=== PATIENT | female | born 1970 | race Caucasian/White ===

== ENCOUNTER 2016-08-05 09:06 | Emergency (ER) | payer SELFPAY ==
[2016-08-05 09:22] VITALS: BP 102/72
[2016-08-05] MEDS ORDERED: Ondansetron 4 MG/2 ML SDV IVPUSH ONE (09:29)
[2016-08-05] MEDS ORDERED: Sodium Chloride 0.9% 1,000 ML IV ONE (09:29)
[2016-08-05] MEDS ORDERED: Pantoprazole 40 MG Vial IVPUSH ONE (09:29)
[2016-08-05] MEDS ORDERED: Codeine/guaiFENesin 100-10 MG/5 ML Syrup 5 ML Cup PO ONE (09:32)
--- NOTE | 2016-08-05 09:42 | EDM.PDOC ---
ED HISTORY OF PRESENT ILLNESS - General Chief Complaint: Respiratory Problem Stated Complaint: VOMITING Time Seen by Provider: 08/05/16 09:11 Source: Reports: Patient History Limitations: Reports: Other (coughing, N/V) - History of Present Illness INITIAL COMMENTS - FREE TEXT/NARRATIVE: 46 y.o.w.f with a h/o COPD, cachexia, smoker, came to the ed due to nonprod. cough, fever nausea, vomiting and gen. bodyache. Pt works for [employer]. Temp on arrival was 98.6. Pt had poor po intake in the past few days. 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 - Related Data Allergies/ADRs: Allergies Allergy/AdvReac Type Severity Reaction Status Date / Time doxycycline Allergy Severe Vomiting Verified 08/05/16 09:27 meperidine [From Demerol] Allergy Severe Vomiting Verified 08/05/16 09:27 Penicillins Allergy Severe Airway Verified 08/05/16 09:27 Tightness Home Meds: Home Meds Albuterol [IJD: Albuterol HFA] 1 puff .XX Q4HR PRN #8 gm 08/05/16 [Rx] Codeine/guaiFENesin [Robitussin AC] 5 ml PO BID PRN #100 mm 08/05/16 [Rx] Prednisone [IMW: predniSONE] 20 mg PO WITHBREAKFAST #5 tab 08/05/16 [Rx] Past Medical History - Past Health History Medical/Surgical History: Denies Medical/Surgical History HEENT History: Reports: Impaired vision Gastrointestinal History: Reports: Other (see below) Other Gastrointestinal History: Pt states she had a bacterial infection in stomach in past. Musculoskeletal History: Reports: Other (see below) Other Musculoskeletal History: scoliosis - Infectious Disease History Infectious Disease History: Reports: C-difficile, Chicken pox, Measles, Mumps, Shingles - Past Surgical History GI Surgical History: Reports: Appendectomy Female Surgical History: Reports: section, Tubal ligation Social & Family History - Family History Family Medical History: Noncontributory - Tobacco Use Smoking Status *Q: Current Every Day Smoker Years of Tobacco use: 25 Packs/Tins Daily: 1 Used Tobacco, but Quit: No Second Hand Smoke Exposure: Yes - Recreational Drug Use Recreational Drug Use: No ED ROS GENERAL - Review of Systems Review Of Systems: See Below Constitutional: Reports: fever, chills, weakness, night sweats, decreased appetite, weight loss HEENT: Reports: No symptoms Respiratory: Reports: shortness of breath Cardiovascular: Reports: No symptoms Endocrine: Reports: no symptoms GI/Abdominal: Reports: No symptoms : Reports: no symptoms Musculoskeletal: Reports: other (bodyache) Skin: Reports: no symptoms Neurological: Reports: no symptoms Psychiatric: Reports: No symptoms Hematologic/Lymphatic: Reports: no symptoms Immunologic: Reports: no symptoms ED EXAM, GENERAL - Physical Exam Exam: See Below Exam Limited By: No limitations General Appearance: alert, cachetic Ears: normal external exam, normal canal, hearing grossly normal, normal TMs Ear Exam: bilateral ear: auricle normal, canal normal, TM normal Nose: normal inspection, normal mucosa, no blood Throat/Mouth: Normal lips, Normal gums, Normal oropharynx, Normal voice, No airway compromise, Other (dry mucosal membrane) Head: atraumatic, normocephalic Neck: normal inspection, supple, non-tender, full range of motion Respiratory/Chest: decreased breath sounds, rhonchi, wheezing, prolonged expiration Cardiovascular: normal peripheral pulses, regular rate, rhythm, no edema, no gallop, no JVD, no murmur, no rub GI/Abdominal: tender (epigastric) (Female) Exam: Deferred Rectal (Female) Exam: Deferred Back Exam: normal inspection, full range of motion, NT Extremities: normal inspection, normal range of motion, non-tender, normal capillary refill, no pedal edema Neurological: alert, oriented, CN II-XII intact, normal cognition, normal gait, normal reflexes, no motor/sensory deficits Psychiatric: normal affect, normal mood Skin Exam: Warm, Dry, Intact, Normal color, No rash Lymphatic: no adenopathy Course - Vital Signs Text/Narrative:: 46 y.o.w.f with a h/o COPD, cachexia, smoker, came to the ed due to nonprod. cough, fever nausea, vomiting and gen. bodyache. Pt works for [employer]. Temp on arrival was 98.6. Pt had poor po intake in the past few days. PE: Cachectic w f with non prod. cough, rhonchi, dehydrated. Labs: MCV elevated, potassium 3.3 CXR: COPD Impression: CIOD exacerbation, Viral syndrom, Dehydration, Hypokalemia Tx: Potassium, Solumedrol, Duoneb, Codeine, NS Reexam: Improved Plan: D/C with instructions Last Recorded V/S: Last Vital Signs Temp 36.4 C 08/05/16 09:10 Pulse 76 08/05/16 10:15 Resp 18 08/05/16 09:10 BP 102/72 08/05/16 09:10 Pulse Ox 97 08/05/16 10:15 - Orders/Labs/Meds Labs: Laboratory Tests 08/05/16 08/05/16 Range/Units 09:35 09:35 WBC 8.2 (4.5-12.0) X10-3/uL RBC 4.25 (3.23-5.20) x10(6)uL Hgb 15.1 (11.5-15.5) g/dL Hct 44.8 (30.0-51.3) % MCV 105.3 H (80-96) fL MCH 35.4 H (27.7-33.6) pg MCHC 33.6 (32.2-35.4) g/dL RDW 13.9 (11.5-15.5) % Plt Count 160 (125-369) X10(3)uL MPV 10.2 (7.4-10.4) fL Neut % (Auto) 53.3 (46-82) % Lymph % (Auto) 40.4 H (13-37) % Chaves % (Auto) 4.7 (4-12) % Eos % (Auto) 1 (1.0-5.0) % Baso % (Auto) 1 (0-2) % Neut # 4.4 (1.6-8.3) # Lymph # 3.3 (0.6-5.0) # Chaves # 0.4 (0.0-1.3) # Eos # 0.0 (0.0-0.8) # Baso # 0.1 (0.0-0.2) # Sodium 139 (135-145) mmol/L Potassium 3.3 L (3.5-5.3) mmol/L Chloride 103 (100-110) mmol/L Carbon Dioxide 24 (23-29) mmol/L BUN 9 (5-20) mg/dL Creatinine 0.5 L (0.6-1.3) mg/dL Est Cr Clr Drug Dosing 100.60 mL/min Estimated GFR (MDRD) > 60 (>60) BUN/Creatinine Ratio 18.0 (9-20) Glucose 123 H (80-116) mg/dL Calcium 8.6 (8.6-10.2) mg/dL Total Bilirubin 0.3 (0.1-1.3) mg/dL Direct Bilirubin 0.1 (0.1-0.2) mg/dL AST 25 (5-27) IU/L ALT 14 (14-26) IU/L Alkaline Phosphatase 61 (56-112) IU/L Total Protein 6.6 (6.0-8.0) g/dL Albumin 3.9 (3.5-5.2) g/dL Amylase 57 (28-100) U/L Meds: Medications Discontinued Medications Generic Name Dose Route Start Last Admin Trade Name Freq PRN Reason Stop Dose Admin Albuterol/Ipratropium 3 ml 08/05/16 09:49 08/05/16 10:16 Duoneb 3.0-0.5 Mg/3 Ml NEB 08/05/16 09:50 3 ml ONETIME ONE Administration Guaifenesin/Codeine Phosphate 5 ml 08/05/16 09:32 08/05/16 09:50 Robitussin Ac PO 08/05/16 09:33 5 ml ONETIME ONE Administration Sodium Chloride 1,000 mls @ 999 mls/hr 08/05/16 09:29 08/05/16 09:58 Normal Saline IV 08/05/16 10:29 999 mls/hr .BOLUS ONE Administration Methylprednisolone Sodium Succinate 125 mg 08/05/16 09:50 08/05/16 10:54 Solu-Medrol IVPUSH 08/05/16 09:51 125 mg ONETIME ONE Administration Ondansetron HCl 8 mg 08/05/16 09:29 08/05/16 10:04 Zofran IVPUSH 08/05/16 09:30 8 mg ONETIME ONE Administration Pantoprazole Sodium 40 mg 08/05/16 09:29 08/05/16 10:00 Protonix Iv IVPUSH 08/05/16 09:30 40 mg ONETIME ONE Administration Potassium Chloride 40 meq 08/05/16 09:57 08/05/16 10:54 Klor-Con M20 PO 08/05/16 09:58 40 meq ONETIME ONE Administration Departure - Departure Time of Disposition: 11:06 Disposition: Home, Self-Care 01 Condition: good Clinical Impression: Viral syndrome, Dehydration, Cachexia, Hypokalemia COPD (chronic obstructive pulmonary disease) with emphysema Qualifiers: Emphysema type: panlobular Qualified Code(s): J43.1 - Panlobular emphysema Prescriptions: Albuterol [IJD: Albuterol HFA] 1 puff .XX Q4HR PRN #8 gm PRN Reason: cough, SOB Codeine/guaiFENesin [Robitussin AC] 5 ml PO BID PRN #100 mm PRN Reason: for severe cough only Prednisone [IMW: predniSONE] 20 mg PO WITHBREAKFAST #5 tab Forms: ED Department Discharge, Return to Work/School Form
[2016-08-05] MEDS ORDERED: Albuterol/Ipratropium 3.0-0.5 MG/3 ML Neb Soln NEB ONE (09:49)
[2016-08-05] MEDS ORDERED: methylPREDNISolone Sodium Succinate 125 MG/2 ML SDV IVPUSH ONE (09:50)
[2016-08-05] MEDS ORDERED: Potassium Chloride 20 MEQ Tab.ER PO ONE (09:57)
--- NOTE | 2016-08-05 10:31 | CR ---
INDICATION: Cough. CHEST: PA and lateral views of the chest 08/05/2016, compared with 03/15/2016, revealed mild hyperaeration, increased AP diameter, and somewhat flattened diaphragm leaves, suggesting COPD. Nipple shadow is noted at the right lung base faintly. A definite active infiltrate or effusion was not identified. Mild dextroconvex scoliosis is noted at the thoracolumbar spine. The heart and mediastinum were unremarkable, except for question of some minimal calcification at the arch of the aorta. IMPRESSION: 1. No acute process. 2. Probable COPD. 3. Question minimal ASD aorta. 4. Mild scoliosis. MTDD
== END 2016-08-05 11:20 | disposition home or self-care (01) ==
LOC: FB.ED 09:06
DX: B34.9 Viral infection, unspecified (principal); E86.0 Dehydration; R64 Cachexia; E87.6 Hypokalemia; J43.1 Panlobular emphysema; F17.210 Nicotine dependence, cigarettes, uncomplicated; Z90.49 Acquired absence of other specified parts of digestive tract; Z98.51 Tubal ligation status; Z98.890 Other specified postprocedural states; Z88.0 Allergy status to penicillin; Z88.1 Allergy status to other antibiotic agents
CPT/HCPCS: 36415; 71020; 80048; 80076; 82150; 85025; 94664; 96361; 96374; 96375; 99283; A9270; C9113; J2405; J2930; J7040; J7620; 99284

== ENCOUNTER 2016-11-23 20:24 | Emergency (ER) | payer SELFPAY ==
[2016-11-23] MEDS ORDERED: Ketorolac 60 MG/2 ML SDV IM ONE (20:37)
[2016-11-23 21:15] VITALS: BP 111/83
--- NOTE | 2016-11-23 21:15 | EDM.PDOC ---
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 Right Middle Arm Pain Score (Numeric/FACES): 8 - Related Data Allergies Allergy/AdvReac Type Severity Reaction Status Date / Time doxycycline Allergy Severe Vomiting Verified 11/23/16 21:05 meperidine [From Demerol] Allergy Severe Vomiting Verified 11/23/16 21:05 Penicillins Allergy Severe Airway Verified 11/23/16 21:05 Tightness Home Meds: Home Meds NK [No Known Home Meds] 11/23/16 [History] Past Medical History - Past Health History Medical/Surgical History: Denies Medical/Surgical History HEENT History: Reports: Impaired Vision Cardiovascular History: Reports: Other (See Below) Other Cardiovascular History: Costeochondritis, low BP Respiratory History: Reports: Asthma, COPD, Other (See Below) Other Respiratory History: Emphysema, Pleurisy Gastrointestinal History: Reports: Other (See Below) Other Gastrointestinal History: Pt states she had a bacterial infection in stomach in past. 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 (See Below) Other OB/BYN History: tubal ligation Musculoskeletal History: Reports: Other (See Below) Other Musculoskeletal History: hand surgery - Infectious Disease History Infectious Disease History: Reports: C-Difficile, Chicken Pox, Measles, Mumps, Shingles - Past Surgical History Female Surgical History: Reports: Section, Tubal Ligation Social & Family History - Family History Family Medical History: Noncontributory - Tobacco Use Smoking Status *Q: Current Every Day Smoker Years of Tobacco use: 35 Packs/Tins Daily: 1.5 Used Tobacco, but Quit: No Second Hand Smoke Exposure: Yes - Caffeine Use Caffeine Use: Reports: Tea - Recreational Drug Use Recreational Drug Use: No Review of Systems - Review of Systems Review Of Systems: See Below Constitutional: Reports: No Symptoms Eyes: Reports: No Symptoms Ears: Reports: No Symptoms Nose: Reports: No Symptoms Mouth/Throat: Reports: No Symptoms Respiratory: Reports: No Symptoms Cardiovascular: Reports: No Symptoms GI/Abdominal: Reports: No Symptoms Genitourinary: Reports: No Symptoms Musculoskeletal: Reports: Other (R elbow pain) Skin: Reports: No Symptoms Neurological: Reports: No Symptoms Psychiatric: Reports: No Symptoms ED EXAM, GENERAL - Physical Exam Exam: See Below Exam Limited By: No Limitations General Appearance: Alert, WD/WN, Mild Distress Respiratory/Chest: No Respiratory Distress Cardiovascular: Regular Rate, Rhythm Extremities: Other (holding RUE gingerly, flexed 90 degrees, good ROM, 1+ tender at medial epicondyle, no swell, no ecchymosis, NT at joint line and radial head, XR neg) Course - Vital Signs Last Recorded V/S: Last Vital Signs Temp 36.6 C 11/23/16 20:25 Pulse 86 11/23/16 20:25 Resp 20 11/23/16 20:25 BP 138/92 H 11/23/16 20:25 Pulse Ox - Orders/Labs/Meds Orders: Active Orders 24 hr Category Date Time Status Elbow Min 3V Rt [CR] Stat Exams 11/23/16 20:37 Taken Meds: Medications Discontinued Medications Generic Name Dose Route Start Last Admin Trade Name Freq PRN Reason Stop Dose Admin Ketorolac Tromethamine 60 mg 11/23/16 20:37 11/23/16 20:47 Toradol IM 11/23/16 20:38 60 mg ONETIME ONE Administration Departure - Departure Time of Disposition: 21:12 Disposition: Home, Self-Care 01 Condition: Good Clinical Impression: Contusion of right elbow, Bone bruise - Discharge Information Instructions: Elbow Contusion Forms: ED Department Discharge Additional Instructions: Use Eric wrap for the next 3-5 days. Use ice for 15 minutes 4 times a day for 2 days. For pain and inflammation, take ibuprofen 200 mg 3 tabs and acetaminophen 325 mg 2 tabs 4 times a day for 3-5 days. No work tomorrow. See your doctor in 2 days if you are not at least 90% better. See your doctor in 1 week if you are not 100% better. Call your Physician or Return to Emergency Department if: * Your condition worsens in any way. * You develop fever greater than 100.4. * You have vomitting that does not stop with medications. * You have pain that is not controlled with medications. - My Orders Last 24 Hours: My Active Orders 11/23/16 20:37 Elbow Min 3V Rt [CR] Stat - Assessment/Plan Last 24 Hours: My Active Orders 11/23/16 20:37 Elbow Min 3V Rt [CR] Stat
--- NOTE | 2016-11-25 13:55 | CR ---
INDICATION: Right elbow pain. RIGHT ELBOW: FINDINGS: I do not have any comparison studies. I do not see a fracture or dislocation or joint effusion. Exam is negative. As appropriate, I recommend either follow-up radiographs or if necessary, MRI for further evaluation. CHRISTINE
== END 2016-11-23 21:23 | disposition home or self-care (01) ==
LOC: FB.ED 20:24
DX: S50.01XA Contusion of right elbow, initial encounter (principal); J45.909 Unspecified asthma, uncomplicated; H54.7 Unspecified visual loss; F17.210 Nicotine dependence, cigarettes, uncomplicated; X50.9XXA Other and unspecified overexertion or strenuous movements or postures, initial encounter; Y93.52 Activity, horseback riding; Z88.0 Allergy status to penicillin; Z88.1 Allergy status to other antibiotic agents; Z88.8 Allergy status to other drugs, medicaments and biological substances
CPT/HCPCS: 73080; 96372; 99283; J1885

== ENCOUNTER 2017-02-13 11:16 | Emergency (ER) | payer SELFPAY ==
[2017-02-13 12:10] VITALS: BP 121/81
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
== END 2017-02-13 12:05 | disposition home or self-care (01) ==
LOC: FB.ED 11:16
DX: M50.222 Other cervical disc displacement at C5-C6 level (principal); G31.89 Other specified degenerative diseases of nervous system; Z98.51 Tubal ligation status; J44.9 Chronic obstructive pulmonary disease, unspecified; F10.10 Alcohol abuse, uncomplicated; Z90.49 Acquired absence of other specified parts of digestive tract; Z88.0 Allergy status to penicillin; Z88.1 Allergy status to other antibiotic agents; Z88.6 Allergy status to analgesic agent
CPT/HCPCS: 99283

== ENCOUNTER 2017-03-27 17:34 | Emergency (ER) | payer SELFPAY ==
[2017-03-27] MEDS ORDERED: Lidocaine 1% 20 ML MDV INJECT ONE (17:35)
[2017-03-27 19:02] VITALS: BP 132/90
--- NOTE | 2017-03-27 19:05 | EDM.PDOC ---
ED HPI GENERAL MEDICAL PROBLEM - General Chief Complaint: Laceration Stated Complaint: LACERATION TO LEFT POINTER FINGER Time Seen by Provider: 03/27/17 17:50 Source of Information: Reports: Patient History Limitations: Reports: No Limitations - History of Present Illness INITIAL COMMENTS - FREE TEXT/NARRATIVE: Patient is a 46 year old woman who cut the lateral side of her left index finger with a paring knife in her kitchen cutting onions. She has some numbness in the finger that radiates up and down the finger. She felt it hit the bone. No loss of function and no other complaints. Her tetanus was given 3 years ago. 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) Left Hand Pain Score (Numeric/FACES): 5 - Related Data Allergies Allergy/AdvReac Type Severity Reaction Status Date / Time doxycycline Allergy Severe Vomiting Verified 03/27/17 17:44 meperidine [From Demerol] Allergy Severe Vomiting Verified 03/27/17 17:44 Penicillins Allergy Severe Airway Verified 03/27/17 17:44 Tightness Home Meds: Home Meds NK [No Known Home Meds] 03/27/17 [History] Past Medical History - Past Health History Medical/Surgical History: Denies Medical/Surgical History HEENT History: Reports: Impaired Vision, Other (See Below) Other HEENT History: wears glasses Cardiovascular History: Reports: Other (See Below) Other Cardiovascular History: Costeochondritis, low BP Respiratory History: Reports: Asthma, COPD, Other (See Below) Other Respiratory History: Emphysema, Pleurisy Gastrointestinal History: Reports: Other (See Below) Other Gastrointestinal History: Pt states she had a bacterial infection in stomach in past. 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: , Other (See Below) Other OB/BYN History: tubal ligation Musculoskeletal History: Reports: Other (See Below) Other Musculoskeletal History: hand surgery - Infectious Disease History Infectious Disease History: Reports: C-Difficile, Chicken Pox, Measles, Mumps, Shingles - Past Surgical History Female Surgical History: Reports: Section, Tubal Ligation Social & Family History - Family History Family Medical History: Noncontributory Oncologic: Reports: Bone, Breast, Colon, Pancreatic - Tobacco Use Smoking Status *Q: Current Every Day Smoker Years of Tobacco use: 35 Packs/Tins Daily: 1 Used Tobacco, but Quit: No Second Hand Smoke Exposure: Yes - Caffeine Use Caffeine Use: Reports: None - Alcohol Use Days Per Week of Alcohol Use: 2 Number of Drinks Per Day: 4 Total Drinks Per Week: 8 - Recreational Drug Use Recreational Drug Use: No ED ROS GENERAL - Review of Systems Review Of Systems: ROS reveals no pertinent complaints other than HPI. ED EXAM, SKIN/RASH Exam: See Below Exam Limited By: No Limitations General Appearance: Alert, WD/WN, No Apparent Distress Eye Exam: Bilateral Eye: EOMI, Normal Fundi, Normal Inspection, PERRL Ears: Normal External Exam, Normal Canal, Hearing Grossly Normal, Normal TMs Nose: Normal Inspection, Normal Mucosa, No Blood Throat/Mouth: Normal Inspection, Normal Lips, Normal Teeth, Normal Gums, Normal Oropharynx, Normal Voice, No Airway Compromise Head: Atraumatic, Normocephalic Neck: Normal Inspection, Supple, Non-Tender, Full Range of Motion Respiratory/Chest: No Respiratory Distress, Lungs Clear, Normal Breath Sounds, No Accessory Muscle Use, Chest Non-Tender Cardiovascular: Normal Peripheral Pulses, Regular Rate, Rhythm, No Edema, No Gallop, No JVD, No Murmur, No Rub Extremities: Other (1 cm laceration on left lateral index finger with numbness distally. No tendon involvement. X-ray by my initial reading is negative for fracture.) Neurological: Sensory/Motor Deficit (Distal to the laceration on the left index finger.) Psychiatric: Normal Affect, Normal Mood Skin: Wound/Incision (1 cm left lateral index finger. No foreign body seen.) Lymphatic: No Adenopathy ED SKIN PROCEDURES - Laceration/Wound Repair Left Upper Distal Finger Lac/Wound length In cm: 1 Appearance: Linear, Clean Distal NVT: Other (Numb distal to the laceration on the left distal index finger.) Local Anesthesia - Lidocaine (Xylocaine): 1% Plain Local Anesthetic Volume: 2cc Skin Prep: Chlorhexidine (Hibiciens), Sterile Drape Exploration/Debridement/Repair: Wound Explored, In a Bloodless Field, Explored to Base, No Foreign Material Found Closed with: Sutures Suture Size: 4-0 # of Sutures: 4 Suture Type: Nylon, Interrupted, Simple Course - Vital Signs Text/Narrative:: Uneventful ED course. Laceration was closed as noted in procedure note. Wound care was reviewed with patient and she will return for suture removal in 8 days. She will also see PCP if it becomes infected. Last Recorded V/S: Last Vital Signs Temp 36.6 C 03/27/17 17:44 Pulse 95 03/27/17 17:44 Resp 14 03/27/17 17:44 BP 134/84 03/27/17 17:44 Pulse Ox 98 03/27/17 17:44 - Orders/Labs/Meds Orders: Active Orders 24 hr Category Date Time Status Fingers Second Digit Lt F1 [CR] Stat Exams 03/27/17 18:04 Ordered Departure - Departure Time of Disposition: 19:15 Disposition: Home, Self-Care 01 Condition: Good Clinical Impression: Laceration of finger - Discharge Information Referrals: Maddie Rene NP [Primary Care Provider] - - My Orders Last 24 Hours: My Active Orders 03/27/17 18:04 Fingers Second Digit Lt F1 [CR] Stat - Assessment/Plan Last 24 Hours: My Active Orders 03/27/17 18:04 Fingers Second Digit Lt F1 [CR] Stat
--- NOTE | 2017-03-29 13:25 | CR ---
INDICATION: Hit bone while cutting onions today. LEFT INDEX FINGER: Three views of the index finger revealed no fracture or dislocation or other significant bony abnormality. Overlying soft tissue injury is noted at the dorsum of the distal phalanx of the index finger. LEDAD
== END 2017-03-27 19:02 | disposition home or self-care (01) ==
LOC: FB.ED 17:34
DX: S61.211A Laceration without foreign body of left index finger without damage to nail, initial encounter (principal); Z88.1 Allergy status to other antibiotic agents; Z88.5 Allergy status to narcotic agent; Z88.0 Allergy status to penicillin; F17.210 Nicotine dependence, cigarettes, uncomplicated; W26.0XXA Contact with knife, initial encounter
CPT/HCPCS: 12001; 73140-F1; 99282

== ENCOUNTER 2019-08-28 10:48 | Emergency (ER) | payer MEDICAID, OTHER ==
[2019-08-28] MEDS ORDERED: Sodium Chloride 0.9% 10 ML Syringe FLUSH PRN (11:19)
[2019-08-28] MEDS ORDERED: HYDROmorphone 2 MG/ML SDV IVPUSH ONE ×2 (11:21→13:39)
[2019-08-28] MEDS ORDERED: Sodium Chloride 0.9% 1,000 ML IV ONE (11:21)
[2019-08-28] MEDS ORDERED: Ondansetron 4 MG/2 ML SDV IVPUSH ONE (11:22)
[2019-08-28] MEDS ORDERED: Pantoprazole 40 MG Vial IVPUSH ONE (11:22)
--- NOTE | 2019-08-28 11:30 | EDM.PDOC ---
ED HPI GENERAL MEDICAL PROBLEM - General Chief Complaint: Gastrointestinal Problem Stated Complaint: VOMITTING AND CRAMPING, DIARRHEA Time Seen by Provider: 08/28/19 11:27 Source of Information: Reports: Patient History Limitations: Reports: No Limitations - History of Present Illness INITIAL COMMENTS - FREE TEXT/NARRATIVE: Presents with intermittent LLQ abdominal pain x 2 months. Pain recurred last night @2330, more severe than it has been and associated with frankly bloody stool and nausea. Denies h/o diverticulosis. Prior abdominal surgeries include Appendectomy, , and BTL. Denies prior h/o GI bleed or endoscopy. Also denies sick contacts or recent travel. Onset Date: 08/27/19 Onset Time: 23:30 Location: Reports: Abdomen Severity: Moderate - Related Data Allergies Allergy/AdvReac Type Severity Reaction Status Date / Time doxycycline Allergy Severe Vomiting Verified 08/28/19 11:19 meperidine [From Demerol] Allergy Severe Vomiting Verified 08/28/19 11:19 Penicillins Allergy Severe Airway Verified 08/28/19 11:19 Tightness Home Meds: Home Meds Acetaminophen/HYDROcodone [Avenue 325-5 MG] 1 - 2 tab PO Q6H PRN #20 tab [Rx] Ondansetron HCl [Zofran] 4 mg PO Q8H PRN #10 tablet 08/28/19 [Rx] sulfaSALAzine 500 mg PO Q6H #40 tablet 08/28/19 [Rx] Past Medical History HEENT History: Reports: Impaired Vision, Other (See Below) Other HEENT History: wears glasses Cardiovascular History: Reports: Other (See Below) Other Cardiovascular History: Costeochondritis, low BP Respiratory History: Reports: Asthma, COPD, Other (See Below) Other Respiratory History: Emphysema, Pleurisy Gastrointestinal History: Reports: Other (See Below) Other Gastrointestinal History: Pt states she had a bacterial infection in stomach in past. 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: Reports: , Other (See Below) Other 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: tubal ligation Musculoskeletal History: Reports: Other (See Below) Other Musculoskeletal History: hand surgery - Infectious Disease History Infectious Disease History: Reports: C-Difficile, Chicken Pox, Measles, Mumps, Shingles - Past Surgical History Female Surgical History: Reports: Section, Tubal Ligation Social & Family History - Family History Family Medical History: Noncontributory Oncologic: Reports: Bone, Breast, Colon, Pancreatic - Tobacco Use Smoking Status *Q: Current Every Day Smoker Tobacco Use Within Last Twelve Months: Cigarettes - Caffeine Use Caffeine Use: Reports: None - Alcohol Use Alcohol Use History: Yes Alcohol Use Frequency: Rarely ED ROS GENERAL - Review of Systems Review Of Systems: Comprehensive ROS is negative, except as noted in HPI. ED EXAM, GI/ABD - Physical Exam Exam: See Below Exam Limited By: No Limitations General Appearance: Alert, WD/WN, No Apparent Distress Ears: Normal External Exam Throat/Mouth: No Airway Compromise Head: Atraumatic, Normocephalic Neck: Normal Inspection Respiratory/Chest: No Respiratory Distress, Lungs Clear, Normal Breath Sounds Cardiovascular: Regular Rate, Rhythm, No Murmur GI/Abdominal Exam: Normal Bowel Sounds, Soft, No Distention, Tender (LLQ) Neurological: Alert, Normal Cognition Psychiatric: Normal Affect, Normal Mood Skin Exam: Warm, Dry Course - Vital Signs Last Recorded V/S: Last Vital Signs Temp 36.7 C 08/28/19 11:00 Pulse 92 08/28/19 11:00 Resp 22 H 08/28/19 11:00 BP 130/89 08/28/19 11:00 Pulse Ox 99 08/28/19 11:00 - Orders/Labs/Meds Orders: Active Orders 24 hr Category Date Time Status Abdomen Pelvis w Cont [CT] Stat Exams 08/28/19 11:57 Taken STOOL CULTURE Stat Lab 08/28/19 11:20 Ordered UA W/MICROSCOPIC [URIN] Stat Lab 08/28/19 11:20 Ordered Sodium Chloride 0.9% [Saline Flush] Med 08/28/19 11:19 Active 10 ml FLUSH ASDIRECTED PRN Saline Lock Insert [OM.PC] Routine Oth 08/28/19 11:19 Ordered Medication Orders Sodium Chloride (Saline Flush) 10 ml FLUSH ASDIRECTED PRN PRN Reason: Keep Vein Open Labs: Laboratory Tests 08/28/19 08/28/19 08/28/19 Range/Units 11:32 11:32 11:32 WBC 11.9 (4.5-12.0) X10-3/uL RBC 4.20 (3.23-5.20) x10(6)uL Hgb 15.7 H (11.5-15.5) g/dL Hct 46.1 (30.0-51.3) % MCV 109.6 H (80-96) fL MCH 37.4 H (27.7-33.6) pg MCHC 34.1 (32.2-35.4) g/dL RDW 12.9 (11.5-15.5) % Plt Count 197 (125-369) X10(3)uL MPV 9.6 (7.4-10.4) fL Neut % (Auto) 78.7 (46-82) % Lymph % (Auto) 13.4 (13-37) % Edgar % (Auto) 4.1 (4-12) % Eos % (Auto) 0 L (1.0-5.0) % Baso % (Auto) 4 H (0-2) % Neut # (Auto) 9.4 H (1.6-8.3) # Lymph # (Auto) 1.6 (0.6-5.0) # Edgar # (Auto) 0.5 (0.0-1.3) # Eos # (Auto) 0.0 (0.0-0.8) # Baso # (Auto) 0.4 H (0.0-0.2) # Sodium 135 (135-145) mmol/L Potassium 4.5 (3.5-5.3) mmol/L Chloride 97 L (100-110) mmol/L Carbon Dioxide 28 (21-32) mmol/L BUN 6 L (7-18) mg/dL Creatinine 0.7 (0.55-1.02) mg/dL Est Cr Clr Drug Dosing TNP Estimated GFR (MDRD) > 60 (>60) BUN/Creatinine Ratio 8.6 L (9-20) Glucose 130 H (80-116) mg/dL Calcium 9.3 (8.6-10.2) mg/dL Total Bilirubin 0.8 (0.1-1.3) mg/dL AST 35 H (5-25) IU/L ALT 32 (12-36) U/L Alkaline Phosphatase 151 H (56-112) IU/L Total Protein 7.6 (6.0-8.0) g/dL Albumin 4.1 (3.5-5.2) g/dL Globulin 3.5 g/dL Albumin/Globulin Ratio 1.2 Lipase 112 (73-393) U/L Meds: Medications Generic Name Dose Route Start Last Admin Trade Name Freq PRN Reason Stop Dose Admin Sodium Chloride 10 ml 08/28/19 11:19 Saline Flush FLUSH ASDIRECTED PRN Keep Vein Open Discontinued Medications Generic Name Dose Route Start Last Admin Trade Name Freq PRN Reason Stop Dose Admin Hydromorphone HCl 0.5 mg 08/28/19 11:21 08/28/19 11:55 Dilaudid IVPUSH 08/28/19 11:22 0.5 mg ONETIME ONE Administration Hydromorphone HCl 0.5 mg 08/28/19 13:39 Dilaudid IVPUSH 08/28/19 13:40 ONETIME ONE Sodium Chloride 1,000 mls @ 999 mls/hr 08/28/19 11:21 08/28/19 11:55 Normal Saline IV 08/28/19 12:21 999 mls/hr .BOLUS ONE Administration Iopamidol 100 ml 08/28/19 12:15 08/28/19 12:27 Isovue-370 (76%) IV 08/28/19 12:16 85 ml ONETIME ONE Administration Methylprednisolone Sodium Succinate 125 mg 08/28/19 13:36 Solu-Medrol IVPUSH 08/28/19 13:37 ONETIME ONE Ondansetron HCl 4 mg 08/28/19 11:22 08/28/19 11:55 Zofran IVPUSH 08/28/19 11:23 4 mg ONETIME ONE Administration Pantoprazole Sodium 40 mg 08/28/19 11:22 08/28/19 12:05 Protonix Iv IVPUSH 08/28/19 11:23 40 mg ONETIME ONE Administration - Radiology Interpretation Free Text/Narrative:: CT Abd/Pelvis w/ IV contrast: Thickened wall proximal small bowel and descending colon consistent with skip lesions. (per Dr. Sadler) - Re-Assessments/Exams Free Text/Narrative Re-Assessment/Exam: 08/28/19 13:45 Symptoms improved after Dilaudid 0.5mg IV and Zofran 4mg IV, however pain beginning to return. Patient unable to give a stool sample. Etiology of patient's symptoms most likely due to Crohn's disease given finding of skip lesions on CT. Infectious etiology less likely due to lack of fever or elevated WBC ct on CBC. Departure - Departure Time of Disposition: 13:47 Disposition: Home, Self-Care 01 Condition: Good Clinical Impression: Inflammatory bowel disease - Discharge Information *PRESCRIPTION DRUG MONITORING PROGRAM REVIEWED*: Yes *COPY OF PRESCRIPTION DRUG MONITORING REPORT IN PATIENT ARNOLD: Not Applicable Prescriptions: Acetaminophen/HYDROcodone [Avenue 325-5 MG] 1 - 2 tab PO Q6H PRN #20 tab PRN Reason: Pain Ondansetron HCl [Zofran] 4 mg PO Q8H PRN #10 tablet PRN Reason: Nausea/Vomiting sulfaSALAzine 500 mg PO Q6H #40 tablet Instructions: Crohn's Disease Referrals: Errol Dunbar NP [Ordering Only Provider] - 2 Days Samuel Hernandez MD [Primary Care Provider] - 2 Days Forms: ED Department Discharge Additional Instructions: Fill the prescriptions for Sulfasalazine, Zofran, and Avenue and take as directed. Follow up with your Primary Physician and/or [facility] in 2-3 days. Return to the ER if symptoms worsen. Sepsis Event Note - Evaluation Sepsis Screening Result: No Definite Risk - Focused Exam Vital Signs: Vital Signs Temp Pulse Resp BP Pulse Ox 08/28/19 11:00 36.7 C 92 22 H 130/89 99 Date Exam was Performed: 08/28/19 Time Exam was Performed: 13:43 - My Orders Last 24 Hours: My Active Orders 08/28/19 11:19 Sodium Chloride 0.9% [Saline Flush] 10 ml FLUSH ASDIRECTED PRN Saline Lock Insert [OM.PC] Routine 08/28/19 11:20 STOOL CULTURE Stat UA W/MICROSCOPIC [URIN] Stat 08/28/19 11:57 Abdomen Pelvis w Cont [CT] Stat - Assessment/Plan Last 24 Hours: My Active Orders 08/28/19 11:19 Sodium Chloride 0.9% [Saline Flush] 10 ml FLUSH ASDIRECTED PRN Saline Lock Insert [OM.PC] Routine 08/28/19 11:20 STOOL CULTURE Stat UA W/MICROSCOPIC [URIN] Stat 08/28/19 11:57 Abdomen Pelvis w Cont [CT] Stat
[2019-08-28] MEDS ORDERED: Iopamidol 755 Mg/ML 100 ML Bottle IV ONE (12:15)
[2019-08-28] MEDS ORDERED: methylPREDNISolone Sodium Succinate 125 MG/2 ML SDV IVPUSH ONE (13:36)
--- NOTE | 2019-08-28 15:27 | CT ---
INDICATION: Abdominal pain, bloody diarrhea. CT ABDOMEN AND PELVIS WITH CONTRAST: Spiral 3.75 mm axial sections were obtained through the abdomen and pelvis with 85 mL Isovue 370 at 100 second delay with a 1.5 cc/sec rate of injection. Examination was obtained 08/28/19 - no comparisons. Total exam DLP was 484.02 mGy-cm. The low lung davis and pleural spaces visualized were unremarkable. The heart appeared normal in size. No pericardial effusion was seen. There appears to be some thickening of the wall of the stomach as well as multiple loops of jejunum extending into the lower abdomen with somewhat dilated appearance of some of the more proximal loops. More normal diameter small bowel is noted below those loops. The wall of the proximal descending colon and distal transverse colon are thickened also. The appendix was not definitely visualized compatible with history of appendectomy. No evidence of free air or definite mechanically obstructive process was identified. No definite retroperitoneal mass was seen. Calcifications are noted in the abdominal aorta. No retroperitoneal masses were seen. No gallstones were demonstrated. There is a phrygian cap noted. The liver, adrenal glands, kidneys and collecting system, spleen, and pancreas appear to be normal. There appears to be some thickening of the wall of the urinary bladder, which could be on the basis of cystitis, but should be correlated clinically. No additional organomegaly or mass lesions were identified in the abdomen or pelvis. No evidence of hernia was identified. IMPRESSION: 1. Thickened wall of bowel, small bowel especially, and then also the colon, raising question of a process such as Crohn's disease - correlate clinically. 2. ASD. 3. Post appendectomy. 4. Suggestion of thickening of the wall of the urinary bladder, probably enhanced by lack of full distention, could represent cystitis but should be correlated clinically. Report was given in person to Dr. Castro soon after the examination was made available. CHRISTINE
[2019-08-28 20:15] VITALS: BP 118/78; PULSE 76
== END 2019-08-28 14:15 | disposition home or self-care (01) ==
LOC: FB.ED 10:48
DX: K63.9 Disease of intestine, unspecified (principal); Z88.1 Allergy status to other antibiotic agents; Z88.0 Allergy status to penicillin
CPT/HCPCS: 36415; 74177; 80053; 81001; 83690; 85025; 96361; 96374; 96375; 96376; 99284; C9113; J1170; J2405; J2930; J7030; Q9967

== ENCOUNTER 2019-09-05 08:02 | Day surgery (SDC) | payer MEDICAID ==
[2019-09-05] MEDS ORDERED: Propofol 200 MG/20 ML SDV IV ONE (08:03)
[2019-09-05] MEDS ORDERED: Lidocaine 1% PF 2 ML SDV INJECT ONE (08:03)
[2019-09-05] MEDS ORDERED: Sodium Chloride 0.9% 10 ML Syringe FLUSH PRN (08:15)
[2019-09-05] MEDS ORDERED: Lactated Ringers 1,000 ML IV SCH (08:15)
--- NOTE | 2019-09-05 10:29 | PCM.OPNOTE ---
- General Post-Op/Procedure Note Date of Surgery/Procedure: 09/05/19 Operative Procedure(s): c scope with bx cold forcep Findings: nl exam Pre Op Diagnosis: abnl ct scan of gi tract Post-Op Diagnosis: nl study Anesthesia Technique: MAC Primary Surgeon: Delon Hassan Anesthesia Provider: Samuel Kwan Pathology: random bx Complications: None Condition: Good Free Text/Narrative:: see dictation
--- NOTE | 2019-09-05 10:54 | OR ---
DATE OF OPERATION: 09/05/2019 SURGEON: Delon Hassan MD PROCEDURE PERFORMED: Colonoscopy with random biopsies. PREOPERATIVE DIAGNOSIS: History of diarrhea and abdominal pain, questionable inflammatory bowel disease. POSTOPERATIVE DIAGNOSIS: Normal exam. INDICATIONS FOR PROCEDURE: This is a 49-year-old white female who was referred with a history of some intermittent diarrhea. Recent CT scan supposedly demonstrated some skip lesions including small and large intestine that were highly suggestive of Crohn disease. She was offered and accepted a colonoscopy to diagnose for this possible disease. DESCRIPTION OF OPERATION: After an excellent IV sedation was administered, digital rectal exam was performed. No marked abnormality was noted. Flexible colonoscope was inserted and advanced to the cecum. Prep was excellent. The following findings were noted. Ascending colon unremarkable, random biopsies were taken. Transverse colon unremarkable, random biopsies were taken. Descending colon unremarkable, random biopsies were taken. Sigmoid and rectum were unremarkable, random biopsies were taken. It should be noted an attempt was made to intubate the terminal ileum, and this was unsuccessful. We will send the patient's results by letter. /[id number] /MODL
[2019-09-05 11:35] VITALS: BP 104/80; PULSE 80
== END 2019-09-05 11:27 | disposition home or self-care (01) ==
LOC: FB.SDS 08:02
PROVIDERS: ATTEND Surgery
DX: R19.7 Diarrhea, unspecified (principal); R10.9 Unspecified abdominal pain; K62.5 Hemorrhage of anus and rectum; Z88.0 Allergy status to penicillin; Z88.6 Allergy status to analgesic agent; Z88.1 Allergy status to other antibiotic agents; Z79.899 Other long term (current) drug therapy
CPT/HCPCS: 00811; 45380; 88305; J2001; J2704; J7120

== ENCOUNTER 2020-05-05 08:33 | Emergency (ER) | payer MEDICAID, OTHER ==
--- NOTE | 2020-05-05 08:52 | EDM.PDOC ---
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 She states that the right eye seemed to get more than the left eye. This occurred approximately 8:05 AM today. At this point she irrigated both eyes for 15-20 minutes with water at the eye irrigation station at her work. She continued to have burning in both of her eyes and there is photophobia and that prompted her to come to the emergency department for evaluation. She reports the burning is a 6/10. It is worse in the right eye than the left eye. There were no other injuries. She is having no difficulty breathing. No nausea or vomiting. No antecedent problems. There are no other associated signs or symptoms. There are no other modifying factors. 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 (see below) (Irrigated both eyes with water 15- 20 minutes immediately after the exposure occurred.) - Related Data Allergies Allergy/AdvReac Type Severity Reaction Status Date / Time doxycycline Allergy Severe Vomiting Verified 05/05/20 09:24 meperidine [From Demerol] Allergy Severe Vomiting Verified 05/05/20 09:24 Penicillins Allergy Severe Airway Verified 05/05/20 09:24 Tightness Home Meds: Home Meds Acetaminophen/HYDROcodone [Tron[place] 325-5 MG] 1 - 2 tab PO Q6H PRN #20 tab 08/28/19 [Rx] Albuterol Sulfate [Proair Digihaler] 90 mcg IH Q6H 09/04/19 [History] Umeclidinium Brm/Vilanterol Tr [Anoro Ellipta 62.5-25 MCG] 1 each IH DAILY 09/04/19 [History] Neomycin/Polymyxin B/Dexametha [Maxitrol Eye Drops] 1 drop EYEBOTH QID 3 Days #1 bottle 05/05/20 [Rx] Past Medical History HEENT History: Reports: Impaired Vision, Other (See Below) Other HEENT History: wears glasses Respiratory History: Reports: Asthma, COPD, Other (See Below) Other Respiratory History: Emphysema, Pleurisy Gastrointestinal History: Reports: Irritable Bowel Syndrome - Infectious Disease History Infectious Disease History: Reports: C-Difficile, Chicken Pox, Measles, Mumps, Shingles - Past Surgical History HEENT Surgical History: Reports: Adenoidectomy, Tonsillectomy GI Surgical History: Reports: Appendectomy Female Surgical History: Reports: Section, Tubal Ligation Other Female Surgeries/Procedures: hiatal hernia. tobacco use Musculoskeletal Surgical History: Reports: ORIF (Of left finger), Other (See Below) (Right foot surgery.) Social & Family History - Family History Oncologic: Reports: Bone, Breast, Colon, Pancreatic - Tobacco Use Tobacco Use Status *Q: Current Every Day Tobacco User - Caffeine Use Caffeine Use: Reports: Coffee - Alcohol Use Alcohol Use History: Yes Alcohol Use Frequency: Socially (Occasional alcohol use.) - Living Situation & Occupation Occupation: Employed (works at [employer].) ED ROS GENERAL - Review of Systems Review Of Systems: See Below Constitutional: Reports: No Symptoms HEENT: Reports: Eye Pain (Bilateral eye burning.) Respiratory: Reports: No Symptoms Cardiovascular: Reports: No Symptoms Endocrine: Reports: No Symptoms GI/Abdominal: Reports: No Symptoms : Reports: No Symptoms Musculoskeletal: Reports: No Symptoms Skin: Reports: No Symptoms Neurological: Reports: No Symptoms Psychiatric: Reports: No Symptoms Hematologic/Lymphatic: Reports: No Symptoms Immunologic: Reports: Other (Last tetanus immunization was less than a month ago. So, she is up-to-date.) ED EXAM, GENERAL - Physical Exam Exam: See Below Exam Limited By: No Limitations General Appearance: Alert, WD/WN, Mild Distress Eye Exam: Bilateral Eye: EOMI, PERRL, Other (Visual acuity is 20/30 in both eyes. Conjunctival injection in both eyes. Fluorescein uptake in a circular pattern consistent with Reji lenses.) Ears: Normal External Exam, Hearing Grossly Normal Ear Exam: Bilateral Ear: Auricle Normal Nose: Normal Inspection, Normal Mucosa, No Blood Throat/Mouth: Normal Oropharynx, Normal Voice, No Airway Compromise Head: Atraumatic, Normocephalic Neck: Normal Inspection, Supple, Non-Tender, Full Range of Motion Respiratory/Chest: No Respiratory Distress, Lungs Clear, Normal Breath Sounds, No Accessory Muscle Use, Chest Non-Tender Cardiovascular: Normal Peripheral Pulses, Regular Rate, Rhythm, No Murmur Peripheral Pulses: 2+: Radial (L), Radial (R) GI/Abdominal: Normal Bowel Sounds, Soft, Non-Tender, No Mass Back Exam: Normal Inspection, Full Range of Motion Extremities: Normal Inspection, Normal Range of Motion, Non-Tender, No Pedal Edema, Normal Capillary Refill Neurological: Alert, Oriented, CN II-XII Intact, Normal Cognition, No Motor/Sensory Deficits Psychiatric: Normal Affect Skin Exam: Warm, Dry, Intact, Normal Color, No Rash ED GENERAL MEDICAL PROCEDURES - Additional/Other Procedure(s) Other (Free Text) Procedure(s): Both eyes irrigated with lactated Ringer's 1 L using Reji lenses. Patient did feel improved after this but still had irritation feeling to both eyes. Course - Vital Signs Last Recorded V/S: Last Vital Signs Temp 36.7 C 05/05/20 10:50 Pulse 77 05/05/20 10:50 Resp 17 05/05/20 10:50 BP 111/84 05/05/20 10:50 Pulse Ox 99 05/05/20 10:50 - Orders/Labs/Meds Orders: Active Orders 24 hr Category Date Time Status Eye Irrigation [RC] ASDIRECTED Care 05/05/20 08:52 Active Meds: Medications Discontinued Medications Generic Name Dose Route Start Last Admin Trade Name Freq PRN Reason Stop Dose Admin Tetracaine HCl 1 ml 05/05/20 10:01 Tetracaine 0.5% Steri-Unit Rianna EYEBOTH 05/05/20 10:02 ASDIRECTED ONE - Re-Assessments/Exams Free Text/Narrative Re-Assessment/Exam: 05/05/20 10:42: Signs were irrigated with lactated Ringer's 1 L. There was conjunctival injection in both eyes and some fluorescein uptake in both eyes. I did call and discuss the patient's case with Dr. Nelson, marine steamfitter at [facility] in [place], and he feels that the patient should do well. He does not feel that the patient needs any other acute intervention now. He does recommend Maxitrol drops 4 times a day to both eyes for the next 3 days and the patient should follow-up with ophthalmology tomorrow. I will give her the number so that she can call to arrange for follow-up. Departure - Departure Time of Disposition: 10:50 Disposition: Home, Self-Care 01 Condition: Good Clinical Impression: Accidental exposure to bleach Chemical burn due to alkali, conjunctiva Qualifiers: Encounter type: initial encounter Laterality: unspecified laterality Qualified Code(s): T54.3X1A - Toxic effect of corrosive alkalis and alkali-like substances, accidental (unintentional), initial encounter - Discharge Information Prescriptions: Neomycin/Polymyxin B/Dexametha [Maxitrol Eye Drops] 1 drop EYEBOTH QID 3 Days #1 bottle Instructions: Chemical Burn of the Eyes, Adult Referrals: Samuel Hernandez MD [Primary Care Provider] - Forms: ED Department Discharge, ED Return to Work/School Form Additional Instructions: You have mild chemical arndt to both eyes. You also have scratches to the cornea of both eyes. No work until cleared by the marine steamfitter in [place]. I discussed your case with Dr. Nelson, marine steamfitter at [facility] in [place], and he felt that you should do okay with this. He wanted me to place she will on an eyedrop for both eyes for the next 3 days (Maxitrol drops). You should call [phone] tomorrow morning and tell them that you were seen in the emergency department and that you need follow-up with the eye doctor today (05/06/2020). Rest with eye rest. Back to the emergency department for marked increase in pain, trouble breathing or any other concerning sign or symptom. Sepsis Event Note (ED) - Focused Exam Vital Signs: Vital Signs Temp Pulse Resp BP Pulse Ox 05/05/20 10:50 36.7 C 77 17 111/84 99 05/05/20 08:35 36.7 C 92 18 116/79 100 - My Orders Last 24 Hours: My Active Orders 05/05/20 08:52 Eye Irrigation [RC] ASDIRECTED - Assessment/Plan Last 24 Hours: My Active Orders 05/05/20 08:52 Eye Irrigation [RC] ASDIRECTED
[2020-05-05] MEDS ORDERED: Tetracaine HCl/PF 0.5% 4 ML Bottle EYEBOTH ONE (10:01)
[2020-05-05 10:51] VITALS: BP 111/84; PULSE 77
== END 2020-05-05 11:02 | disposition home or self-care (01) ==
LOC: FB.ED 08:33
DX: T54.3X1A Toxic effect of corrosive alkalis and alkali-like substances, accidental (unintentional), initial encounter (principal); T26.62XA Corrosion of cornea and conjunctival sac, left eye, initial encounter; T26.61XA Corrosion of cornea and conjunctival sac, right eye, initial encounter; J44.9 Chronic obstructive pulmonary disease, unspecified; F17.200 Nicotine dependence, unspecified, uncomplicated; Z88.0 Allergy status to penicillin; Z88.5 Allergy status to narcotic agent; Z88.1 Allergy status to other antibiotic agents; Z90.49 Acquired absence of other specified parts of digestive tract; Z98.51 Tubal ligation status
CPT/HCPCS: 99283

== ENCOUNTER 2021-02-10 12:45 | Emergency (ER) | payer MEDICAID, OTHER ==
[2021-02-10] MEDS ORDERED: diphenhydrAMINE 50 MG/ML SDV IM ONE (12:47)
--- NOTE | 2021-02-10 12:59 | EDM.PDOC ---
ED HPI GENERAL MEDICAL PROBLEM - General Stated Complaint: ALLGERIC BEESTING Time Seen by Provider: 02/10/21 12:49 - History of Present Illness INITIAL COMMENTS - FREE TEXT/NARRATIVE: 50-year-old lady came to the emergency department for evaluation of a possible bee sting. She states that the last time she was stung by a bee was when she was 7 years old and she had an anaphylactic reaction. She is very anxious and complains of both feet feeling numb. The bee sting is on the bottom of her left foot. She has a recent diagnosis of left lung cancer. She is scheduled for a biopsy this week. States that she has several severe laboratory abnormalities. Does not complain of difficulty breathing or shortness of breath, numbness or tingling in the lips, tongues, throat. She does have severe anxiety over tingling in her hands and feet bilaterally. L heel Pain Score (Numeric/FACES): 4 - Related Data Allergies Allergy/AdvReac Type Severity Reaction Status Date / Time doxycycline Allergy Severe Vomiting Verified 05/05/20 09:24 meperidine [From Demerol] Allergy Severe Vomiting Verified 05/05/20 09:24 Penicillins Allergy Severe Airway Verified 05/05/20 09:24 Tightness bee venom protein (honey bee) Allergy Swelling Verified 02/10/21 12:58 Home Meds: Home Meds Potassium Chloride [Klor-Con M20] 20 meq PO DAILY 02/10/21 [History] Past Medical History - Past Health History Medical/Surgical History: Denies Medical/Surgical History HEENT History: Reports: Impaired Vision, Other (See Below) Other HEENT History: wears glasses Cardiovascular History: Reports: Other (See Below) Other Cardiovascular History: Costeochondritis, low BP Respiratory History: Reports: Asthma, COPD, Other (See Below) Other Respiratory History: Emphysema, Pleurisy Gastrointestinal History: Reports: Irritable Bowel Syndrome Other Gastrointestinal History: Pt states she had a bacterial infection in stomach in past. irritable bowel disease Genitourinary History: Reports: None FINANCE BUSINESS MANAGER History: Reports: , Other (See Below) Other FINANCE BUSINESS MANAGER History: tubal ligation Musculoskeletal History: Reports: Other (See Below) Other Musculoskeletal History: hand surgery Neurological History: Reports: None Psychiatric History: Reports: None Endocrine/Metabolic History: Reports: None Hematologic History: Reports: None Immunologic History: Reports: None Oncologic (Cancer) History: Reports: None Dermatologic History: Reports: None - Infectious Disease History Infectious Disease History: Reports: C-Difficile, Chicken Pox, Measles, Mumps, Shingles - Past Surgical History Musculoskeletal Surgical History: Reports: ORIF (Of left finger), Other (See Below) (Right foot surgery.) Social & Family History - Family History Family Medical History: No Pertinent Family History Oncologic: Reports: Bone, Breast, Colon, Pancreatic - Caffeine Use Caffeine Use: Reports: None - Living Situation & Occupation Occupation: Employed (works at [email or web address] ED ROS ALLERGIC REACTION - Review of Systems Review Of Systems: See Below Constitutional: Reports: Malaise, Weakness HEENT: Reports: No Symptoms Respiratory: Reports: Shortness of Breath, Pleuritic Chest Pain, Cough, Sputum Cardiovascular: Reports: No Symptoms Endocrine: Reports: Fatigue GI/Abdominal: Reports: No Symptoms : Reports: No Symptoms Musculoskeletal: Reports: No Symptoms Skin: Reports: Other (Be sting) Neurological: Reports: Numbness, Tremors, Weakness Psychiatric: Reports: Anxiety Hematologic/Lymphatic: Reports: Anemia, Easy Bleeding Immunologic: Reports: No Symptoms ED EXAM GENERAL NO PERIP PULSE - Physical Exam Exam: See Below Exam Limited By: No Limitations General Appearance: Anxious Eye Exam: Bilateral Eye: EOMI Head: Atraumatic, Normocephalic Neck: Normal Inspection. No: Lymphadenopathy (R), Lymphadenopathy (L) Respiratory/Chest: Other (Coarse breath sounds left upper lobe) Cardiovascular: Normal Peripheral Pulses, Regular Rate, Rhythm, No Edema, No Gallop, No Murmur GI/Abdominal: Normal Bowel Sounds, Soft, Non-Tender Back Exam: Normal Inspection. No: CVA Tenderness (R), CVA Tenderness (L) Extremities: Normal Inspection, No Pedal Edema Neurological: Alert, Oriented, CN II-XII Intact, Normal Cognition Psychiatric: Anxious Skin Exam: Other (Small area of erythema with mild edema, no discharge left plantar surface of the foot) Course - Vital Signs Text/Narrative:: Patient was given 50 mg Benadryl IM. She had significant reduction in symptoms and anxiety. She requested to be discharged to home. She still has no symptoms of shortness of breath and this, tingling in the throat, lips, tongue. She already has appointments on Wednesday and Wednesday, tomorrow and the next day for further evaluation of her lung cancer. Last Recorded V/S: Last Vital Signs Temp 36.6 C 02/10/21 12:45 Pulse 113 H 02/10/21 12:45 Resp 20 02/10/21 12:45 BP 152/108 H 02/10/21 12:45 Pulse Ox 97 02/10/21 12:45 - Orders/Labs/Meds Meds: Medications Discontinued Medications Generic Name Dose Route Start Last Admin Trade Name Mendez PRN Reason Stop Dose Admin Diphenhydramine HCl 50 mg 02/10/21 12:47 Diphenhydramine 50 Mg/Ml Sdv IM 02/10/21 12:48 ONETIME ONE Departure - Departure Time of Disposition: 14:01 Disposition: Home, Self-Care 01 Condition: Good Clinical Impression: Bee sting - Discharge Information *PRESCRIPTION DRUG MONITORING PROGRAM REVIEWED*: Not Applicable *COPY OF PRESCRIPTION DRUG MONITORING REPORT IN PATIENT ARNOLD: Not Applicable Instructions: Bee, Wasp, or Hornet Sting, Adult Additional Instructions: Return to the emergency room immediately if you have numbness, tingling in the throat, tongue, lips and/or if you have a feeling of difficulty breathing, shortness of breath. Sepsis Event Note (ED) - Focused Exam Vital Signs: Vital Signs Temp Pulse Resp BP Pulse Ox 02/10/21 12:45 36.6 C 113 H 20 152/108 H 97
[2021-02-10 20:06] VITALS: BP 110/83; PULSE 82
== END 2021-02-10 14:11 | disposition home or self-care (01) ==
LOC: FB.ED 12:45
DX: T63.441A Toxic effect of venom of bees, accidental (unintentional), initial encounter (principal); J44.9 Chronic obstructive pulmonary disease, unspecified; Z88.0 Allergy status to penicillin; Z91.030 Bee allergy status; Z88.1 Allergy status to other antibiotic agents; Z88.5 Allergy status to narcotic agent
CPT/HCPCS: 96372; 99282; J1200

== ENCOUNTER 2021-07-12 11:21 | Emergency (ER) | payer MEDICAID ==
[2021-07-12] MEDS ORDERED: Acetaminophen/HYDROcodone 325-5 MG Tab PO ONE (11:22)
[2021-07-12] MEDS: Sodium Chloride 0.9% 10 ML Syringe FLUSH PRN ×2 (11:45→15:45)
[2021-07-12] MEDS ORDERED: Ondansetron 4 MG/2 ML SDV IVPUSH ONE (12:04)
[2021-07-12] MEDS ORDERED: Sodium Chloride 0.9% 1,000 ML IV ONE (12:04)
[2021-07-12] MEDS ORDERED: Morphine 4 MG/ML VIAL IVPUSH ONE ×2 (12:05→13:32)
[2021-07-12] MEDS ORDERED: Potassium Chloride 20 MEQ in Premix Bag 1 BAG IV ONE (12:29)
[2021-07-12] MEDS ORDERED: Magnesium Sulfate/Water 2 GM in Premix Bag 1 BAG IV ONE (12:29)
[2021-07-12] MEDS ORDERED: Iopamidol 755 Mg/ML 75 ML Bottle IV ONE (13:08)
[2021-07-12] MEDS ORDERED: Metoclopramide 10 MG/2 ML SDV IVPUSH ONE (13:32)
[2021-07-12] MEDS ORDERED: Potassium Chloride 20 MEQ Packet PO ONE (14:53)
[2021-07-12 15:38] VITALS: BP 143/90; PULSE 76
[2021-07-12] MEDS ORDERED: Potassium Chloride 20 MEQ Tab.ER PO ONE (15:38)
== END 2021-07-12 16:07 | disposition home or self-care (01) ==
LOC: FB.ED 11:21
DX: R10.12 Left upper quadrant pain (principal); E86.0 Dehydration; E87.6 Hypokalemia; E83.42 Hypomagnesemia; R11.2 Nausea with vomiting, unspecified; J44.9 Chronic obstructive pulmonary disease, unspecified; Z88.0 Allergy status to penicillin; Z91.030 Bee allergy status; Z88.1 Allergy status to other antibiotic agents; Z88.8 Allergy status to other drugs, medicaments and biological substances; Z79.899 Other long term (current) drug therapy; Z72.0 Tobacco use
CPT/HCPCS: 36415; 74177; 80053; 81001; 83605; 83735; 85025; 86140; 96365; 96366; 96367; 96375; 96376; 99284; A9270; J1642; J2270; J2405; J2765; J3475; J3480; J7030; Q9967

== ENCOUNTER 2021-08-16 07:51 | Emergency (ER) | payer MEDICAID ==
[2021-08-16] MEDS: Ondansetron 4 MG/2 ML SDV IVPUSH ONE (08:41)
[2021-08-16] MEDS: Sodium Chloride 0.9% 1,000 ML IV SCH (08:41)
[2021-08-16] MEDS: Pantoprazole 40 MG Vial IVPUSH ONE (09:21)
[2021-08-16] MEDS: Potassium Chloride 20 MEQ Tab.ER PO ONE (10:15)
[2021-08-16 10:51] VITALS: BP 128/88; PULSE 86
== END 2021-08-16 10:48 | disposition home or self-care (01) ==
LOC: FB.ED 07:51
DX: R53.1 Weakness (principal); R11.2 Nausea with vomiting, unspecified; E87.6 Hypokalemia; E83.42 Hypomagnesemia; E86.0 Dehydration; J44.9 Chronic obstructive pulmonary disease, unspecified; Z88.1 Allergy status to other antibiotic agents; Z88.0 Allergy status to penicillin; Z91.030 Bee allergy status; Z79.899 Other long term (current) drug therapy; Z72.0 Tobacco use
CPT/HCPCS: 36415; 80053; 81001; 83605; 83735; 85025; 86140; 96374; 96375; 99283; 99284-25; A9270-GY; C9113; J2405; J7030

== ENCOUNTER 2021-08-26 15:16 | Emergency (ER) | payer MEDICAID ==
[2021-08-26 15:37] VITALS: BP 117/87; PULSE 93
[2021-08-26] MEDS ORDERED: Sodium Chloride 0.9% 10 ML Syringe FLUSH PRN (15:47)
[2021-08-26] MEDS: Metoclopramide 10 MG/2 ML SDV IVPUSH ONE (15:53)
[2021-08-26] MEDS: Prochlorperazine 10 MG in Sodium Chloride 0.9% 50 ML IV STA (15:53)
[2021-08-26] MEDS: Pantoprazole 40 MG Vial IVPUSH ONE (15:54)
[2021-08-26] MEDS: Sodium Chloride 0.9% 1,000 ML IV SCH (16:19)
== END 2021-08-26 17:38 | disposition home or self-care (01) ==
LOC: FB.ED 15:16
DX: K29.70 Gastritis, unspecified, without bleeding (principal); K21.9 Gastro-esophageal reflux disease without esophagitis; J44.9 Chronic obstructive pulmonary disease, unspecified; Z72.0 Tobacco use; Z79.899 Other long term (current) drug therapy; Z88.1 Allergy status to other antibiotic agents; Z88.0 Allergy status to penicillin; Z91.030 Bee allergy status
CPT/HCPCS: 36415; 80053; 81001; 82150; 83690; 85025; 96365; 96375; 99282; 99284-25; C9113; J0780; J2765; J3490; J7030

== ENCOUNTER 2021-10-26 03:47 | Emergency (ER) | payer MEDICAID ==
[2021-10-26] MEDS ORDERED: Sodium Chloride 0.9% 1,000 ML IV ONE (04:06)
[2021-10-26] MEDS ORDERED: Ondansetron 4 MG/2 ML SDV IVPUSH ONE (04:06)
[2021-10-26] MEDS ORDERED: OLANZapine 5 MG Tab PO ONE (05:24)
[2021-10-26] MEDS ORDERED: Thiamine 200 MG/2 ML MDV IVPUSH ONE (05:25)
[2021-10-26] MEDS ORDERED: Dexamethasone 4 MG Tab PO ONE (05:25)
[2021-10-26] MEDS ORDERED: Lactated Ringers 1,000 ML IV ONE (05:28)
[2021-10-26] MEDS ORDERED: Folic Acid 50 MG/10 ML MDV IV SCH (05:30)
[2021-10-26 06:20] VITALS: BP 116/77; PULSE 90
== END 2021-10-26 06:04 | disposition home or self-care (01) ==
LOC: FB.ED 03:47
DX: R11.2 Nausea with vomiting, unspecified (principal); T45.1X5A Adverse effect of antineoplastic and immunosuppressive drugs, initial encounter; C34.90 Malignant neoplasm of unspecified part of unspecified bronchus or lung; E87.6 Hypokalemia; F10.10 Alcohol abuse, uncomplicated; J44.9 Chronic obstructive pulmonary disease, unspecified; K21.9 Gastro-esophageal reflux disease without esophagitis; F17.210 Nicotine dependence, cigarettes, uncomplicated; Z79.899 Other long term (current) drug therapy; Z88.1 Allergy status to other antibiotic agents; Z88.0 Allergy status to penicillin; Z88.5 Allergy status to narcotic agent; Z91.030 Bee allergy status
CPT/HCPCS: 80053; 81001; 83690; 83735; 85025; 96361; 96374; 96375; 99283; 99284-25; A9270-GY; J1642; J2405; J3411; J3490; J7030; J7120; J8540

== ENCOUNTER 2022-03-27 19:05 | Emergency (ER) | payer MEDICAID ==
[2022-03-27 20:01] VITALS: BP 95/75; PULSE 105
== END 2022-03-27 19:50 | disposition home or self-care (01) ==
LOC: FB.ED 19:05
DX: I82.612 Acute embolism and thrombosis of superficial veins of left upper extremity (principal); C34.00 Malignant neoplasm of unspecified main bronchus; J44.9 Chronic obstructive pulmonary disease, unspecified; Z79.899 Other long term (current) drug therapy; Z88.1 Allergy status to other antibiotic agents; Z88.0 Allergy status to penicillin; Z91.030 Bee allergy status; Z88.5 Allergy status to narcotic agent
CPT/HCPCS: 99283

== ENCOUNTER 2022-09-25 18:29 | Emergency (ER) | payer MEDICAID ==
[2022-09-25 19:11] VITALS: BP 123/81; PULSE 96
[2022-09-25 19:51] LABS: ESTIMATED GFR 112 mL/min (>60)
== END 2022-09-25 21:52 | disposition other institution (70) ==
LOC: FB.ED 18:29
DX: A41.9 Sepsis, unspecified organism (principal); C34.92 Malignant neoplasm of unspecified part of left bronchus or lung; J44.9 Chronic obstructive pulmonary disease, unspecified; Z88.1 Allergy status to other antibiotic agents; Z88.0 Allergy status to penicillin; Z91.030 Bee allergy status; Z88.5 Allergy status to narcotic agent
CPT/HCPCS: 36415; 71045; 80053; 81001; 83605; 85025; 85651; 86140; 87040; 93005; 93010; 99284; 99285

== ENCOUNTER 2022-10-24 23:51 | Emergency (ER) | payer BC, MEDICAID ==
[2022-10-24] MEDS ORDERED: Codeine/guaiFENesin 100mg-10 MG/5 ML Soln 118 ML Bottle PO ONE (23:52)
[2022-10-25] MEDS ORDERED: Albuterol/Ipratropium 3.0-0.5 MG/3 ML Neb Soln NEB ONE (00:17)
[2022-10-25] MEDS ORDERED: Albuterol/Ipratropium 3.0-0.5 MG/3 ML Neb Soln ONE (00:38)
[2022-10-25 00:44] LABS: BASOPHILS ABSOLUTE AUTO 0.1 x10-3/uL (0.0-0.1); EOSINOPHILS ABSOLUTE AUTO 0.1 x10-3/uL (0.0-0.8); EOSINOPHILS PERCENT AUTO 1.5 % (0.6-8.1); HEMATOCRIT 42.6 % (34.2-48.2); HEMOGLOBIN 14.7 g/dL (11.4-15.5); LYMPHOCYTES ABSOLUTE AUTO 2.8 x10-3/uL (1.0-4.4); LYMPHOCYTES PERCENT AUTO 29.2 % (18.4-52.1); MEAN CORPUSCULAR HEMOGLOBIN 38.4 pg (23.9-33.9); MEAN CORPUSCULAR HGB CONC 34.5 g/dL (31.9-34.8); MEAN CORPUSCULAR VOLUME 111.2 fL (76.7-100.5); MEAN PLATELET VOLUME 8.9 fL (7.1-12.4); MONOCYTES PERCENT AUTO 10.7 % (4.4-15.7); NEUTROPHILS ABSOLUTE AUTO 5.5 x10-3/uL (1.5-6.3); NEUTROPHILS PERCENT AUTO 57.6 % (30.8-76.2); PLATELET COUNT,PLT 203 x10(3)uL (151-488); RED BLOOD CELL COUNT 3.83 x10(6)uL (3.60-5.20); RED CELL DISTRIBUTION WIDTH 14.2 % (12.3-16.5); WHITE BLOOD CELL COUNT,WBC 9.5 x10-3/uL (3.0-10.3)
[2022-10-25 00:49] LABS: BLOOD UREA NITROGEN,BUN 7 mg/dL (7-18); CALCIUM 8.7 mg/dL (8.6-10.2); CARBON DIOXIDE,CO2 24 mmol/L (21-32); CHLORIDE,CL 95 mmol/L (100-110); CREATININE 0.5 mg/dL (0.55-1.02); ESTIMATED GFR 112 mL/min (>60); GLUCOSE RANDOM 97 mg/dL (80-116); POTASSIUM,K 3.5 mmol/L (3.5-5.3); SODIUM,NA 130 mmol/L (135-145)
[2022-10-25 00:55] LABS: ALANINE AMINOTRANSFERASE,ALT 39 U/L (12-36); ALBUMIN 3.2 g/dL (3.5-5.2); ALKALINE PHOSPHATASE 152 IU/L (56-112); ASPARTATE AMNIOTRANSFERASE,AST 61 IU/L (5-25); BILIRUBIN TOTAL 0.3 mg/dL (0.1-1.3); PROTEIN TOTAL,TP 6.5 g/dL (6.0-8.0)
[2022-10-25] MEDS ORDERED: Dexamethasone 4 MG/ML 5 ML MDV PO ONE (01:05)
[2022-10-25 02:04] VITALS: BP 134/93; PULSE 81
== END 2022-10-25 01:26 | disposition home or self-care (01) ==
LOC: FB.ED 23:51
DX: J12.9 Viral pneumonia, unspecified (principal); J44.1 Chronic obstructive pulmonary disease with (acute) exacerbation; Z88.0 Allergy status to penicillin; Z91.038 Other insect allergy status; Z88.8 Allergy status to other drugs, medicaments and biological substances; Z79.899 Other long term (current) drug therapy
CPT/HCPCS: 36415; 71046; 80053; 85025; 86140; 94640; 99284; A9270-GY; J7620; J8540

== ENCOUNTER 2022-12-07 15:59 | Emergency (ER) | payer MEDICAID ==
[2022-12-07] MEDS ORDERED: Lidocaine 2% 20 ML MDV INFILT ONE (16:00)
[2022-12-07] MEDS: Lidocaine/Epineph/Tetracaine 3 ML Syringe TOP ONE (16:16)
[2022-12-07 21:25] VITALS: BP 114/76
[2022-12-07 21:33] VITALS: PULSE 84
== END 2022-12-07 17:40 | disposition home or self-care (01) ==
LOC: FB.ED 15:59
DX: S61.012A Laceration without foreign body of left thumb without damage to nail, initial encounter (principal); J43.9 Emphysema, unspecified; K21.9 Gastro-esophageal reflux disease without esophagitis; K63.89 Other specified diseases of intestine; Z88.0 Allergy status to penicillin; Z88.1 Allergy status to other antibiotic agents; Z91.030 Bee allergy status; Z88.5 Allergy status to narcotic agent; W26.0XXA Contact with knife, initial encounter
CPT/HCPCS: 12001; 99282; A9270-GY

== ENCOUNTER 2023-01-13 03:20 | Emergency (ER) | payer MEDICAID ==
[2023-01-13] MEDS ORDERED: traMADol 50 MG Tab PO ONE (03:21)
[2023-01-13] MEDS ORDERED: Ondansetron 4 MG Tab.DIS PO ONE (04:17)
[2023-01-13 05:27] VITALS: BP 115/72; PULSE 78
== END 2023-01-13 05:25 | disposition home or self-care (01) ==
LOC: FB.ED 03:20
DX: S22.32XA Fracture of one rib, left side, initial encounter for closed fracture (principal); J44.9 Chronic obstructive pulmonary disease, unspecified; K21.9 Gastro-esophageal reflux disease without esophagitis; Z87.891 Personal history of nicotine dependence; Z79.899 Other long term (current) drug therapy; Z88.0 Allergy status to penicillin; Z91.030 Bee allergy status; Z88.1 Allergy status to other antibiotic agents; Z88.8 Allergy status to other drugs, medicaments and biological substances; W01.0XXA Fall on same level from slipping, tripping and stumbling without subsequent striking against object, initial encounter
CPT/HCPCS: 71101; 99283; A9270; Q0162

== ENCOUNTER 2023-04-30 17:56 | Emergency (ER) | payer MEDICAID ==
[2023-04-30] MEDS ORDERED: Albuterol/Ipratropium 3.0-0.5 MG/3 ML Neb Soln NEB ONE (18:24)
[2023-04-30] MEDS ORDERED: methylPREDNISolone Sodium Succinate 125 MG/2 ML SDV IM ONE (18:24)
[2023-04-30 18:43] LABS: BASOPHILS PERCENT AUTO 0.7 % (0.2-1.5); EOSINOPHILS ABSOLUTE AUTO 0.1 x10-3/uL (0.0-0.8); EOSINOPHILS PERCENT AUTO 1.1 % (0.6-8.1); HEMATOCRIT 41.6 % (34.2-48.2); HEMOGLOBIN 14.5 g/dL (11.4-15.5); LYMPHOCYTES ABSOLUTE AUTO 2.1 x10-3/uL (1.0-4.4); LYMPHOCYTES PERCENT AUTO 33.1 % (18.4-52.1); MEAN CORPUSCULAR HEMOGLOBIN 38.7 pg (23.9-33.9); MEAN CORPUSCULAR HGB CONC 34.8 g/dL (31.9-34.8); MEAN CORPUSCULAR VOLUME 111.2 fL (76.7-100.5); MEAN PLATELET VOLUME 9.1 fL (7.1-12.4); MONOCYTES ABSOLUTE AUTO 0.6 x10-3/uL (0.3-1.0); MONOCYTES PERCENT AUTO 9.1 % (4.4-15.7); NEUTROPHILS ABSOLUTE AUTO 3.5 x10-3/uL (1.5-6.3); PLATELET COUNT,PLT 192 x10(3)uL (151-488); RED BLOOD CELL COUNT 3.74 x10(6)uL (3.60-5.20); RED CELL DISTRIBUTION WIDTH 14.6 % (12.3-16.5); WHITE BLOOD CELL COUNT,WBC 6.2 x10-3/uL (3.0-10.3)
[2023-04-30 18:58] LABS: PRO B-TYPE NATRIUR PEPT,BNPPRO 365 pg/mL (<=125)
[2023-04-30 19:02] LABS: TROPONIN I < 4.0 pg/mL (4.0-60.3)
[2023-04-30 19:16] LABS: INR 0.96 (1.00-1.24); PROTHROMBIN TIME 9.9 sec (9.0-11.1)
[2023-04-30 19:21] LABS: PTT,PARTIAL THROMBOPLSTIN TIME 24.3 SECONDS (24.4-33.2)
[2023-04-30 19:26] LABS: ALBUMIN 3.6 g/dL (3.5-5.2); ALKALINE PHOSPHATASE 170 IU/L (56-112); BILIRUBIN TOTAL 0.3 mg/dL (0.1-1.3); CALCIUM 8.6 mg/dL (8.6-10.2); EST CRCL DRUG DOSING (CG) 96.71 mL/min; ESTIMATED GFR 111 mL/min (>60); PROTEIN TOTAL,TP 7.1 g/dL (6.0-8.0)
[2023-04-30 19:30] LABS: BLOOD UREA NITROGEN,BUN 9 mg/dL (7-18); CARBON DIOXIDE,CO2 31 mmol/L (21-32); CHLORIDE,CL 101 mmol/L (100-110); CREATININE 0.5 mg/dL (0.55-1.02); GLUCOSE RANDOM 100 mg/dL (80-116); SODIUM,NA 139 mmol/L (135-145)
[2023-04-30 19:36] LABS: ALANINE AMINOTRANSFERASE,ALT 53 U/L (12-36); ASPARTATE AMNIOTRANSFERASE,AST 59 IU/L (5-25)
[2023-04-30] MEDS ORDERED: Azithromycin 500 MG Tab PO ONE (19:40)
[2023-04-30 20:04] VITALS: BP 107/73; PULSE 85
== END 2023-04-30 20:01 | disposition home or self-care (01) ==
LOC: FB.ED 17:56
DX: J44.1 Chronic obstructive pulmonary disease with (acute) exacerbation (principal); R09.1 Pleurisy; C34.92 Malignant neoplasm of unspecified part of left bronchus or lung; K21.9 Gastro-esophageal reflux disease without esophagitis; F17.210 Nicotine dependence, cigarettes, uncomplicated; Z91.014 Allergy to mammalian meats; Z88.0 Allergy status to penicillin; Z88.8 Allergy status to other drugs, medicaments and biological substances; Z79.899 Other long term (current) drug therapy; Z90.49 Acquired absence of other specified parts of digestive tract
CPT/HCPCS: 36415; 71045; 80053; 83880; 84484; 85025; 85379; 85610; 85730; 93005; 93010; 96372; 99284; 99285; A9270; J2930; J7620

== ENCOUNTER 2023-05-13 12:11 | Emergency (ER) | payer MEDICAID ==
[2023-05-13 14:22] VITALS: BP 141/87; PULSE 92
[2023-05-15 08:49] LABS: DEAMIDATED GLIADIN PEPTIDE,IGA <0.72 FLU (0.00-4.99); TISSUE TRANSGLUTAMINAS TTG,IGA <1.02 FLU (0.00-4.99)
[2023-05-15 17:39] LABS: DEAMIDATED GLIADIN PEPTIDE,IGG <0.56 FLU (0.00-4.99); TISSUE TRANSGLUTAMINASE AB,IGG <0.82 FLU (0.00-4.99)
== END 2023-05-13 13:15 | disposition home or self-care (01) ==
LOC: FB.ED 12:11
DX: K52.9 Noninfective gastroenteritis and colitis, unspecified (principal); K21.9 Gastro-esophageal reflux disease without esophagitis; J43.9 Emphysema, unspecified; F17.210 Nicotine dependence, cigarettes, uncomplicated; Z90.410 Acquired total absence of pancreas; Z90.89 Acquired absence of other organs; Z79.899 Other long term (current) drug therapy; Z88.1 Allergy status to other antibiotic agents; Z88.5 Allergy status to narcotic agent; Z88.0 Allergy status to penicillin; Z91.030 Bee allergy status
CPT/HCPCS: 36415; 86258; 86364; 99284

== ENCOUNTER 2023-06-04 12:07 | Emergency (ER) | payer MEDICAID ==
[2023-06-04] MEDS ORDERED: Ketorolac 30 MG/ML SDV IVPUSH ONE (12:44)
[2023-06-04] MEDS ORDERED: Cyclobenzaprine 10 MG Tab PO ONE ×2 (12:44→13:56)
[2023-06-04] MEDS ORDERED: HYDROmorphone 2 MG/ML SDV IVPUSH ONE (12:46)
[2023-06-04] MEDS: Sodium Chloride 0.9% 10 ML Syringe FLUSH PRN ×2 (12:52→12:55)
[2023-06-04 13:08] LABS: HEMATOCRIT 34.5 % (34.2-48.2); HEMOGLOBIN 11.8 g/dL (11.4-15.5); MEAN CORPUSCULAR HEMOGLOBIN 38.6 pg (23.9-33.9); MEAN CORPUSCULAR HGB CONC 34.2 g/dL (31.9-34.8); PLATELET COUNT,PLT 191 x10(3)uL (151-488); RED BLOOD CELL COUNT 3.05 x10(6)uL (3.60-5.20); RED CELL DISTRIBUTION WIDTH 15.9 % (12.3-16.5); WHITE BLOOD CELL COUNT,WBC 14.8 x10-3/uL (3.0-10.3)
[2023-06-04 13:12] LABS: BLOOD UREA NITROGEN,BUN 19 mg/dL (7-18); BUN/CREATININE RATIO 31.7 (9-20); CALCIUM 8.9 mg/dL (8.6-10.2); CARBON DIOXIDE,CO2 30 mmol/L (21-32); CHLORIDE,CL 101 mmol/L (100-110); CREATININE 0.6 mg/dL (0.55-1.02); ESTIMATED GFR 107 mL/min (>60); GLUCOSE RANDOM 95 mg/dL (80-116); SODIUM,NA 138 mmol/L (135-145)
[2023-06-04 13:18] LABS: ALANINE AMINOTRANSFERASE,ALT 54 U/L (12-36); ALBUMIN 2.9 g/dL (3.5-5.2); ALKALINE PHOSPHATASE 100 IU/L (56-112); ASPARTATE AMNIOTRANSFERASE,AST 26 IU/L (5-25); BILIRUBIN TOTAL 0.2 mg/dL (0.1-1.3); PROTEIN TOTAL,TP 5.9 g/dL (6.0-8.0)
[2023-06-04 13:35] LABS: LYMPHOCYTES PERCENT MAN 24 % (13-37); MONOCYTES PERCENT MAN 6 % (4-12); NRBC MANUAL 2 /100WBC (0-0); SEG NEUTROPHILS PERCENT MAN 70 % (46-82)
[2023-06-04] MEDS ORDERED: Sodium Chloride 0.9% 1,000 ML IV SCH (13:45)
[2023-06-04] MEDS ORDERED: Acetaminophen/oxyCODONE 325-5 MG Tab PO STA (13:56)
[2023-06-04 21:46] VITALS: BP 94/63; PULSE 72
== END 2023-06-04 16:20 | disposition home or self-care (01) ==
LOC: FB.ED 12:07
DX: M17.0 Bilateral primary osteoarthritis of knee (principal); J44.9 Chronic obstructive pulmonary disease, unspecified; K21.9 Gastro-esophageal reflux disease without esophagitis; Z88.5 Allergy status to narcotic agent; Z88.0 Allergy status to penicillin; Z88.1 Allergy status to other antibiotic agents; Z91.030 Bee allergy status
CPT/HCPCS: 73562; 80053; 85025; 85379; 99284; A9270; J1170; J1885; J3490; J7030

== ENCOUNTER 2023-06-07 02:50 | Emergency (ER) | payer MEDICAID ==
[2023-06-07 04:04] VITALS: BP 118/70; PULSE 87
== END 2023-06-07 03:51 | disposition home or self-care (01) ==
LOC: FB.ED 02:50
DX: M65.161 Other infective (teno)synovitis, right knee (principal); J44.9 Chronic obstructive pulmonary disease, unspecified; K21.9 Gastro-esophageal reflux disease without esophagitis; Z88.0 Allergy status to penicillin; Z88.1 Allergy status to other antibiotic agents; Z88.3 Allergy status to other anti-infective agents; Z91.030 Bee allergy status; Z79.899 Other long term (current) drug therapy
CPT/HCPCS: 99283

== ENCOUNTER 2023-06-19 11:01 | Emergency (ER) | payer MEDICAID ==
[2023-06-19 11:32] VITALS: BP 103/72; PULSE 85
[2023-06-19 11:48] LABS: BILIRUBIN,URINE NEGATIVE (NEGATIVE); GLUCOSE,URINE NORMAL (NORMAL); KETONES,URINE NEGATIVE (NEGATIVE); LEUKOCYTE ESTERASE,URINE NEGATIVE (NEGATIVE); NITRITE,URINE NEGATIVE (NEGATIVE); OCCULT BLOOD,URINE NEGATIVE (NEGATIVE); PH,URINE 6.5 (5.0-6.5); PROTEIN,URINE NEGATIVE (NEGATIVE); UROBILINOGEN,URINE NORMAL (NEGATIVE)
[2023-06-19 11:57] LABS: APPEARANCE,URINE CLEAR (CLEAR); BACTERIA,URINE FEW (NS); COLOR,URINE YELLOW (YELLOW); RBC,URINE 0-5 (0-5); SQUAMOUS EPITHELIAL CELLS,UR OCCASIONAL (NS,R,O); WBC,URINE 0-5 (0-5)
== END 2023-06-19 13:13 | disposition home or self-care (01) ==
LOC: FB.ED 11:01
DX: K75.4 Autoimmune hepatitis (principal); K52.9 Noninfective gastroenteritis and colitis, unspecified; J44.9 Chronic obstructive pulmonary disease, unspecified; K21.9 Gastro-esophageal reflux disease without esophagitis; Z90.49 Acquired absence of other specified parts of digestive tract; Z79.899 Other long term (current) drug therapy; Z88.1 Allergy status to other antibiotic agents; Z88.0 Allergy status to penicillin; Z91.030 Bee allergy status; Z88.8 Allergy status to other drugs, medicaments and biological substances
CPT/HCPCS: 81001; 99283; 99284

== ENCOUNTER 2023-06-20 14:15 | Emergency (ER) | payer MEDICAID ==
[2023-06-20 14:57] VITALS: BP 125/71; PULSE 91
== END 2023-06-20 15:49 | disposition home or self-care (01) ==
LOC: FB.ED 14:15
DX: S61.452A Open bite of left hand, initial encounter (principal); J44.9 Chronic obstructive pulmonary disease, unspecified; F17.210 Nicotine dependence, cigarettes, uncomplicated; Z79.899 Other long term (current) drug therapy; Z88.0 Allergy status to penicillin; Z91.030 Bee allergy status; Z88.8 Allergy status to other drugs, medicaments and biological substances; Z88.1 Allergy status to other antibiotic agents; W54.0XXA Bitten by dog, initial encounter
CPT/HCPCS: 12001; 99283

== ENCOUNTER 2023-06-23 08:55 | Day surgery (SDC) | payer MEDICAID ==
[2023-06-23] MEDS ORDERED: Lidocaine 2% 5 ML SDV IV ONE (08:56)
[2023-06-23] MEDS ORDERED: Midazolam 1 MG/ML 2 ML SDV IV ONE (08:56)
[2023-06-23] MEDS ORDERED: Propofol 200 MG/20 ML SDV IV ONE (08:56)
[2023-06-23] MEDS ORDERED: Sodium Chloride 0.9% 10 ML Syringe FLUSH PRN (09:00)
[2023-06-23] MEDS ORDERED: Lactated Ringers 1,000 ML IV SCH (09:00)
[2023-06-23 10:14] VITALS: BP 122/72; PULSE 87
[2023-06-26 01:21] LABS: LACTOFERRIN,FECAL BY ELISA Negative
== END 2023-06-23 12:35 | disposition home or self-care (01) ==
LOC: FB.SDS 08:55
PROVIDERS: ATTEND Surgery
DX: K63.5 Polyp of colon (principal); K62.89 Other specified diseases of anus and rectum; K51.90 Ulcerative colitis, unspecified, without complications; J45.909 Unspecified asthma, uncomplicated; J43.9 Emphysema, unspecified; F17.210 Nicotine dependence, cigarettes, uncomplicated; Z79.899 Other long term (current) drug therapy; Z88.0 Allergy status to penicillin; Z91.030 Bee allergy status
CPT/HCPCS: 00811; 83630; 87507; 88305; J2250; J2704; J7120

== ENCOUNTER 2024-02-09 23:25 | Emergency (ER) | payer SELFPAY ==
[2024-02-09 23:45] VITALS: BP 115/75; PULSE 91
[2024-02-10] MEDS: Ketorolac 30 MG/ML SDV IM ONE (00:01)
[2024-02-10] MEDS: Pregabalin 75 MG Cap PO ONE (00:01)
== END 2024-02-10 00:09 | disposition home or self-care (01) ==
LOC: FB.ED 23:25
DX: M79.605 Pain in left leg (principal); J44.9 Chronic obstructive pulmonary disease, unspecified; K21.9 Gastro-esophageal reflux disease without esophagitis; F17.210 Nicotine dependence, cigarettes, uncomplicated; Z90.49 Acquired absence of other specified parts of digestive tract; Z79.899 Other long term (current) drug therapy; Z79.2 Long term (current) use of antibiotics; Z79.52 Long term (current) use of systemic steroids; Z88.0 Allergy status to penicillin; Z88.1 Allergy status to other antibiotic agents; Z88.8 Allergy status to other drugs, medicaments and biological substances; Z91.030 Bee allergy status
CPT/HCPCS: 96372; 99283; A9270; J1885

== ENCOUNTER 2024-04-16 09:05 | Emergency (ER) | payer MEDICAID, OTHER ==
[2024-04-16 09:30] VITALS: BP 122/72; PULSE 92
== END 2024-04-16 09:31 | disposition left against medical advice (07) ==
LOC: FB.ED 09:05
DX: Z53.21 Procedure and treatment not carried out due to patient leaving prior to being seen by health care provider (principal)

== ENCOUNTER 2024-05-23 19:17 | Emergency (ER) | payer OTHER, MEDICAID ==
[2024-05-23 19:34] VITALS: BP 114/75
[2024-05-23] MEDS: Ketorolac 30 MG/ML SDV IM ONE (20:27)
[2024-05-23 20:36] LABS: BASOPHILS ABSOLUTE AUTO 0.1 x10-3/uL (0.0-0.1); BASOPHILS PERCENT AUTO 1.1 % (0.2-1.5); EOSINOPHILS ABSOLUTE AUTO 0.1 x10-3/uL (0.0-0.8); EOSINOPHILS PERCENT AUTO 1.3 % (0.6-8.1); HEMATOCRIT 39.6 % (34.2-48.2); HEMOGLOBIN 13.4 g/dL (11.4-15.5); LYMPHOCYTES ABSOLUTE AUTO 1.8 x10-3/uL (1.0-4.4); LYMPHOCYTES PERCENT AUTO 37.7 % (18.4-52.1); MEAN CORPUSCULAR HEMOGLOBIN 37.2 pg (23.9-33.9); MEAN CORPUSCULAR HGB CONC 33.9 g/dL (31.9-34.8); MEAN CORPUSCULAR VOLUME 109.6 fL (76.7-100.5); MEAN PLATELET VOLUME 9.3 fL (7.1-12.4); MONOCYTES ABSOLUTE AUTO 0.4 x10-3/uL (0.3-1.0); MONOCYTES PERCENT AUTO 8.5 % (4.4-15.7); NEUTROPHILS ABSOLUTE AUTO 2.4 x10-3/uL (1.5-6.3); NEUTROPHILS PERCENT AUTO 51.4 % (30.8-76.2); PLATELET COUNT,PLT 243 x10(3)uL (151-488); RED CELL DISTRIBUTION WIDTH 16.6 % (12.3-16.5); WHITE BLOOD CELL COUNT,WBC 4.7 x10-3/uL (3.0-10.3)
[2024-05-23 20:41] LABS: CALCIUM 8.7 mg/dL (8.6-10.2); CARBON DIOXIDE,CO2 26 mmol/L (21-32); CHLORIDE,CL 105 mmol/L (100-110); CREATININE 0.6 mg/dL (0.55-1.02); EST CRCL DRUG DOSING (CG) 89.52 mL/min; ESTIMATED GFR 106 mL/min (>60); GLUCOSE RANDOM 104 mg/dL (80-116); POTASSIUM,K 3.6 mmol/L (3.5-5.3); SODIUM,NA 143 mmol/L (135-145)
[2024-05-23 20:47] LABS: A/G RATIO 0.9; ALANINE AMINOTRANSFERASE,ALT 21 U/L (12-36); ALKALINE PHOSPHATASE 183 IU/L (56-112); ASPARTATE AMNIOTRANSFERASE,AST 20 IU/L (5-25); BILIRUBIN TOTAL 0.3 mg/dL (0.1-1.3); PROTEIN TOTAL,TP 6.2 g/dL (6.0-8.0)
[2024-05-23 20:52] LABS: BLOOD UREA NITROGEN,BUN < 5 mg/dL (7-18); BUN/CREATININE RATIO 8.3 (9-20)
[2024-05-23 20:58] LABS: RED BLOOD CELL COUNT 3.61 x10(6)uL (3.60-5.20)
[2024-05-23] MEDS: Enoxaparin 60 MG/0.6 ML Syringe SUBCUT ONE (21:42)
[2024-05-23 22:25] VITALS: PULSE 89
== END 2024-05-23 22:12 | disposition home or self-care (01) ==
LOC: FB.ED 19:17
DX: S93.692A Other sprain of left foot, initial encounter (principal); R79.89 Other specified abnormal findings of blood chemistry; K21.9 Gastro-esophageal reflux disease without esophagitis; J44.0 Chronic obstructive pulmonary disease with (acute) lower respiratory infection; F17.210 Nicotine dependence, cigarettes, uncomplicated; Z90.49 Acquired absence of other specified parts of digestive tract; Z88.0 Allergy status to penicillin; Z88.1 Allergy status to other antibiotic agents; Z88.8 Allergy status to other drugs, medicaments and biological substances; Z91.030 Bee allergy status; Z79.51 Long term (current) use of inhaled steroids; Z79.52 Long term (current) use of systemic steroids; Z79.899 Other long term (current) drug therapy; X58.XXXA Exposure to other specified factors, initial encounter
CPT/HCPCS: 36415; 73630; 80053; 83880; 85025; 85379; 96372; 99283; J1650; J1885

== ENCOUNTER 2024-07-06 14:00 | Emergency (ER) | payer MEDICAID ==
[2024-07-06 14:31] LABS: BASOPHILS ABSOLUTE AUTO 0.1 x10-3/uL (0.0-0.1); BASOPHILS PERCENT AUTO 0.9 % (0.2-1.5); EOSINOPHILS ABSOLUTE AUTO 0.1 x10-3/uL (0.0-0.8); EOSINOPHILS PERCENT AUTO 1.1 % (0.6-8.1); HEMATOCRIT 40.8 % (34.2-48.2); HEMOGLOBIN 13.9 g/dL (11.4-15.5); LYMPHOCYTES ABSOLUTE AUTO 2.4 x10-3/uL (1.0-4.4); LYMPHOCYTES PERCENT AUTO 30.2 % (18.4-52.1); MEAN CORPUSCULAR HGB CONC 34.1 g/dL (31.9-34.8); MEAN CORPUSCULAR VOLUME 108.5 fL (76.7-100.5); MEAN PLATELET VOLUME 9.3 fL (7.1-12.4); MONOCYTES ABSOLUTE AUTO 0.7 x10-3/uL (0.3-1.0); MONOCYTES PERCENT AUTO 9.2 % (4.4-15.7); NEUTROPHILS ABSOLUTE AUTO 4.7 x10-3/uL (1.5-6.3); NEUTROPHILS PERCENT AUTO 58.6 % (30.8-76.2); PLATELET COUNT,PLT 257 x10(3)uL (151-488); RED CELL DISTRIBUTION WIDTH 14.4 % (12.3-16.5)
[2024-07-06 14:34] LABS: BLOOD UREA NITROGEN,BUN 6 mg/dL (7-18); CARBON DIOXIDE,CO2 29 mmol/L (21-32); CHLORIDE,CL 104 mmol/L (100-110); CREATININE 0.6 mg/dL (0.55-1.02); EST CRCL DRUG DOSING (CG) 94.83 mL/min; ESTIMATED GFR 106 mL/min (>60); GLUCOSE RANDOM 93 mg/dL (80-116); POTASSIUM,K 3.7 mmol/L (3.5-5.3); SODIUM,NA 139 mmol/L (135-145)
[2024-07-06 14:43] LABS: INR 0.93 (1.00-1.24); PROTHROMBIN TIME 9.8 sec (9.0-11.1)
[2024-07-06 14:46] LABS: ALANINE AMINOTRANSFERASE,ALT 45 U/L (12-36); ALBUMIN 3.4 g/dL (3.5-5.2); ALKALINE PHOSPHATASE 147 IU/L (56-112); ASPARTATE AMNIOTRANSFERASE,AST 52 IU/L (5-25); BILIRUBIN TOTAL 0.3 mg/dL (0.1-1.3); PROTEIN TOTAL,TP 6.9 g/dL (6.0-8.0)
[2024-07-06 14:57] LABS: PTT,PARTIAL THROMBOPLSTIN TIME 25.5 SECONDS (24.4-33.2); RED BLOOD CELL COUNT 3.77 x10(6)uL (3.60-5.20)
[2024-07-06] MEDS: Iopamidol 755 Mg/ML 100 ML Bottle IV SCH (15:17)
[2024-07-06 16:04] VITALS: BP 112/70; PULSE 90
== END 2024-07-06 16:03 | disposition home or self-care (01) ==
LOC: FB.ED 14:00
DX: S09.90XA Unspecified injury of head, initial encounter (principal); S22.31XA Fracture of one rib, right side, initial encounter for closed fracture; F10.20 Alcohol dependence, uncomplicated; G62.9 Polyneuropathy, unspecified; J44.89 Other specified chronic obstructive pulmonary disease; K21.9 Gastro-esophageal reflux disease without esophagitis; F17.210 Nicotine dependence, cigarettes, uncomplicated; Z90.49 Acquired absence of other specified parts of digestive tract; Z88.0 Allergy status to penicillin; Z88.1 Allergy status to other antibiotic agents; Z88.8 Allergy status to other drugs, medicaments and biological substances; Z91.030 Bee allergy status; Z79.51 Long term (current) use of inhaled steroids; Z79.52 Long term (current) use of systemic steroids; Z79.899 Other long term (current) drug therapy; W01.198A Fall on same level from slipping, tripping and stumbling with subsequent striking against other object, initial encounter; Y92.019 Unspecified place in single-family (private) house as the place of occurrence of the external cause; Y90.0 Blood alcohol level of less than 20 mg/100 ml
CPT/HCPCS: 70450; 71260; 72125; 74177; 80053; 80307; 85025; 85610; 85730; 99284; Q9967

== ENCOUNTER 2024-07-30 19:05 | Emergency (ER) | payer OTHER ==
[2024-07-30] MEDS: Ketorolac 30 MG/ML SDV IM ONE (20:33)
[2024-07-30 21:23] VITALS: BP 114/69; PULSE 86
== END 2024-07-30 21:24 | disposition home or self-care (01) ==
LOC: FB.ED 19:05
DX: S22.32XA Fracture of one rib, left side, initial encounter for closed fracture (principal); S80.212A Abrasion, left knee, initial encounter; S80.211A Abrasion, right knee, initial encounter; F17.210 Nicotine dependence, cigarettes, uncomplicated; Z88.0 Allergy status to penicillin; Z91.030 Bee allergy status; Z88.8 Allergy status to other drugs, medicaments and biological substances; Z79.899 Other long term (current) drug therapy; Y04.8XXA Assault by other bodily force, initial encounter
CPT/HCPCS: 71101; 96372; 99285; J1885

== ENCOUNTER 2024-08-02 15:18 | Emergency (ER) | payer OTHER ==
[2024-08-02] MEDS: Albuterol/Ipratropium 3.0-0.5 MG/3 ML Neb Soln NEB ONE (16:26)
[2024-08-02] MEDS: Ketorolac 30 MG/ML SDV IVPUSH ONE (16:26)
[2024-08-02] MEDS: Iopamidol 755 Mg/ML 100 ML Bottle IV SCH (16:27)
[2024-08-02] MEDS: Sodium Chloride 0.9% 10 ML Syringe FLUSH PRN (16:27)
[2024-08-02 16:39] LABS: BASOPHILS ABSOLUTE AUTO 0.1 x10-3/uL (0.0-0.1); BASOPHILS PERCENT AUTO 0.6 % (0.2-1.5); EOSINOPHILS ABSOLUTE AUTO 0.1 x10-3/uL (0.0-0.8); EOSINOPHILS PERCENT AUTO 0.7 % (0.6-8.1); HEMATOCRIT 35.9 % (34.2-48.2); HEMOGLOBIN 12.1 g/dL (11.4-15.5); LYMPHOCYTES ABSOLUTE AUTO 1.4 x10-3/uL (1.0-4.4); LYMPHOCYTES PERCENT AUTO 15.9 % (18.4-52.1); MEAN CORPUSCULAR HEMOGLOBIN 36.1 pg (23.9-33.9); MEAN CORPUSCULAR HGB CONC 33.6 g/dL (31.9-34.8); MEAN CORPUSCULAR VOLUME 107.4 fL (76.7-100.5); MEAN PLATELET VOLUME 9.9 fL (7.1-12.4); MONOCYTES ABSOLUTE AUTO 0.5 x10-3/uL (0.3-1.0); MONOCYTES PERCENT AUTO 5.9 % (4.4-15.7); NEUTROPHILS ABSOLUTE AUTO 6.5 x10-3/uL (1.5-6.3); NEUTROPHILS PERCENT AUTO 76.9 % (30.8-76.2); PLATELET COUNT,PLT 195 x10(3)uL (151-488); RED BLOOD CELL COUNT 3.35 x10(6)uL (3.60-5.20); RED CELL DISTRIBUTION WIDTH 14.9 % (12.3-16.5); WHITE BLOOD CELL COUNT,WBC 8.5 x10-3/uL (3.0-10.3)
[2024-08-02 16:45] LABS: BLOOD UREA NITROGEN,BUN 7 mg/dL (7-18); BUN/CREATININE RATIO 11.7 (9-20); CALCIUM 8.8 mg/dL (8.6-10.2); CARBON DIOXIDE,CO2 30 mmol/L (21-32); CHLORIDE,CL 98 mmol/L (100-110); CREATININE 0.6 mg/dL (0.55-1.02); EST CRCL DRUG DOSING (CG) 94.83 mL/min; ESTIMATED GFR 106 mL/min (>60); GLUCOSE RANDOM 92 mg/dL (80-116); SODIUM,NA 135 mmol/L (135-145)
[2024-08-02 16:51] LABS: A/G RATIO 0.9; ALANINE AMINOTRANSFERASE,ALT 20 U/L (12-36); ALBUMIN 2.9 g/dL (3.5-5.2); ALKALINE PHOSPHATASE 177 IU/L (56-112); ASPARTATE AMNIOTRANSFERASE,AST 30 IU/L (5-25); BILIRUBIN TOTAL 0.6 mg/dL (0.1-1.3)
[2024-08-02 17:32] VITALS: BP 110/71; PULSE 105
== END 2024-08-02 18:05 | disposition home or self-care (01) ==
LOC: FB.ED 15:18
DX: S22.41XA Multiple fractures of ribs, right side, initial encounter for closed fracture (principal); J44.89 Other specified chronic obstructive pulmonary disease; Z88.0 Allergy status to penicillin; Z91.030 Bee allergy status; Z88.8 Allergy status to other drugs, medicaments and biological substances; Z79.899 Other long term (current) drug therapy; Y04.8XXA Assault by other bodily force, initial encounter; Y93.89 Activity, other specified
CPT/HCPCS: 71260; 80053; 85025; 94640; 96374; 99284; J1885; Q9967; J7620

== ENCOUNTER 2024-08-15 16:40 | Emergency (ER) | payer OTHER ==
[2024-08-15] MEDS: Cyclobenzaprine 10 MG Tab PO ONE (17:32)
[2024-08-15 17:58] VITALS: BP 111/74; PULSE 79
== END 2024-08-15 17:54 | disposition home or self-care (01) ==
LOC: FB.ED 16:40
DX: S29.012A Strain of muscle and tendon of back wall of thorax, initial encounter (principal); S46.911A Strain of unspecified muscle, fascia and tendon at shoulder and upper arm level, right arm, initial encounter; Z88.8 Allergy status to other drugs, medicaments and biological substances; Z91.030 Bee allergy status; Z88.0 Allergy status to penicillin; Z79.899 Other long term (current) drug therapy; W01.0XXA Fall on same level from slipping, tripping and stumbling without subsequent striking against object, initial encounter
CPT/HCPCS: 99283; A9270-GY

== ENCOUNTER 2024-09-03 19:27 | Emergency (ER) | payer MEDICAID ==
[2024-09-03 19:59] LABS: BASOPHILS ABSOLUTE AUTO 0.1 x10-3/uL (0.0-0.1); EOSINOPHILS PERCENT AUTO 0.7 % (0.6-8.1); HEMATOCRIT 39.5 % (34.2-48.2); HEMOGLOBIN 13.4 g/dL (11.4-15.5); LYMPHOCYTES ABSOLUTE AUTO 1.7 x10-3/uL (1.0-4.4); LYMPHOCYTES PERCENT AUTO 29.6 % (18.4-52.1); MEAN CORPUSCULAR HGB CONC 33.9 g/dL (31.9-34.8); MEAN CORPUSCULAR VOLUME 106.3 fL (76.7-100.5); MEAN PLATELET VOLUME 8.9 fL (7.1-12.4); MONOCYTES ABSOLUTE AUTO 0.6 x10-3/uL (0.3-1.0); MONOCYTES PERCENT AUTO 10.9 % (4.4-15.7); NEUTROPHILS ABSOLUTE AUTO 3.3 x10-3/uL (1.5-6.3); NEUTROPHILS PERCENT AUTO 57.8 % (30.8-76.2); PLATELET COUNT,PLT 277 x10(3)uL (151-488); RED CELL DISTRIBUTION WIDTH 15.7 % (12.3-16.5); WHITE BLOOD CELL COUNT,WBC 5.7 x10-3/uL (3.0-10.3)
[2024-09-03 20:02] LABS: BLOOD UREA NITROGEN,BUN 8 mg/dL (7-18); BUN/CREATININE RATIO 13.3 (9-20); CALCIUM 8.5 mg/dL (8.6-10.2); CARBON DIOXIDE,CO2 30 mmol/L (21-32); CHLORIDE,CL 105 mmol/L (100-110); CREATININE 0.6 mg/dL (0.55-1.02); ESTIMATED GFR 106 mL/min (>60); GLUCOSE RANDOM 96 mg/dL (80-116); POTASSIUM,K 3.6 mmol/L (3.5-5.3); SODIUM,NA 143 mmol/L (135-145)
[2024-09-03 20:08] LABS: A/G RATIO 0.9; ALANINE AMINOTRANSFERASE,ALT 26 U/L (12-36); ALBUMIN 3.3 g/dL (3.5-5.2); ALKALINE PHOSPHATASE 172 IU/L (56-112); ASPARTATE AMNIOTRANSFERASE,AST 34 IU/L (5-25); BILIRUBIN TOTAL 0.3 mg/dL (0.1-1.3); PROTEIN TOTAL,TP 6.8 g/dL (6.0-8.0)
[2024-09-03 20:10] LABS: RED BLOOD CELL COUNT 3.71 x10(6)uL (3.60-5.20)
[2024-09-03] MEDS: Iopamidol 755 Mg/ML 100 ML Bottle IV SCH (20:17)
[2024-09-03] MEDS: Ketorolac 30 MG/ML SDV IVPUSH ONE (21:16)
[2024-09-03 23:32] VITALS: BP 115/80; PULSE 84
== END 2024-09-03 21:25 | disposition home or self-care (01) ==
LOC: FB.ED 19:27
DX: S20.212A Contusion of left front wall of thorax, initial encounter (principal); S09.90XA Unspecified injury of head, initial encounter; F10.129 Alcohol abuse with intoxication, unspecified; K21.9 Gastro-esophageal reflux disease without esophagitis; J45.909 Unspecified asthma, uncomplicated; Z88.0 Allergy status to penicillin; Z88.8 Allergy status to other drugs, medicaments and biological substances; Z91.030 Bee allergy status; Z79.899 Other long term (current) drug therapy; W19.XXXA Unspecified fall, initial encounter
CPT/HCPCS: 36415; 70450; 71260; 80053; 80307; 85025; 96374; 99285; J1885; Q9967; 99284

== ENCOUNTER 2024-09-11 13:36 | Emergency (ER) | payer MEDICAID, OTHER ==
[2024-09-11] MEDS: Lidocaine 4% Patch TOP STA (14:19)
[2024-09-11] MEDS: Ketorolac 30 MG/ML SDV IM ONE (14:19)
[2024-09-11] MEDS: Cyclobenzaprine 10 MG Tab PO ONE (14:20)
[2024-09-11 14:44] VITALS: BP 108/76; PULSE 90
== END 2024-09-11 14:42 | disposition home or self-care (01) ==
LOC: FB.ED 13:36
DX: S22.43XD Multiple fractures of ribs, bilateral, subsequent encounter for fracture with routine healing (principal); J44.89 Other specified chronic obstructive pulmonary disease; F17.210 Nicotine dependence, cigarettes, uncomplicated; Z88.8 Allergy status to other drugs, medicaments and biological substances; Z88.0 Allergy status to penicillin; Z91.030 Bee allergy status; Z79.899 Other long term (current) drug therapy; Z79.1 Long term (current) use of non-steroidal anti-inflammatories (NSAID); Z90.49 Acquired absence of other specified parts of digestive tract; W19.XXXD Unspecified fall, subsequent encounter; Y09 Assault by unspecified means
CPT/HCPCS: 96372; 99283; A9270-GY; J1885

== ENCOUNTER 2024-11-05 23:17 | Emergency (ER) | payer MEDICAID, OTHER ==
[2024-11-05] MEDS: Ketorolac 30 MG/ML SDV IM ONE (23:39)
[2024-11-06 00:27] VITALS: BP 99/51; PULSE 94
== END 2024-11-06 00:25 | disposition home or self-care (01) ==
LOC: FB.ED 23:17
DX: S90.32XA Contusion of left foot, initial encounter (principal); Z91.030 Bee allergy status; Z88.0 Allergy status to penicillin; Z88.8 Allergy status to other drugs, medicaments and biological substances; Z79.899 Other long term (current) drug therapy; W19.XXXA Unspecified fall, initial encounter; Y92.009 Unspecified place in unspecified non-institutional (private) residence as the place of occurrence of the external cause
CPT/HCPCS: 73630; 96372; 99283; J1885

== ENCOUNTER 2024-11-22 22:47 | Emergency (ER) | payer MEDICAID ==
[2024-11-22] MEDS: Acetaminophen 500 MG Tab PO ONE (23:37)
[2024-11-22] MEDS: Ibuprofen 800 MG Tab PO ONE (23:37)
[2024-11-22 23:47] VITALS: BP 102/72; PULSE 88
== END 2024-11-22 23:40 | disposition home or self-care (01) ==
LOC: FB.ED 22:47
DX: S01.81XA Laceration without foreign body of other part of head, initial encounter (principal); J44.89 Other specified chronic obstructive pulmonary disease; K21.9 Gastro-esophageal reflux disease without esophagitis; Z90.49 Acquired absence of other specified parts of digestive tract; Z88.0 Allergy status to penicillin; Z88.8 Allergy status to other drugs, medicaments and biological substances; Z91.030 Bee allergy status; Z79.51 Long term (current) use of inhaled steroids; Z79.899 Other long term (current) drug therapy; W01.0XXA Fall on same level from slipping, tripping and stumbling without subsequent striking against object, initial encounter
CPT/HCPCS: 12013; 99282; 99283; A9270

== ENCOUNTER 2024-11-26 17:09 | Emergency (ER) | payer MEDICAID ==
[2024-11-26 18:49] VITALS: BP 96/60; PULSE 80
== END 2024-11-26 18:30 | disposition home or self-care (01) ==
LOC: FB.ED 17:09
DX: T81.30XA Disruption of wound, unspecified, initial encounter (principal); J44.89 Other specified chronic obstructive pulmonary disease; K21.9 Gastro-esophageal reflux disease without esophagitis; Z79.899 Other long term (current) drug therapy; Z88.0 Allergy status to penicillin; Z91.030 Bee allergy status; Z88.8 Allergy status to other drugs, medicaments and biological substances; Z79.1 Long term (current) use of non-steroidal anti-inflammatories (NSAID); Z90.49 Acquired absence of other specified parts of digestive tract
CPT/HCPCS: 99282

== ENCOUNTER 2025-02-11 09:53 | Emergency (ER) | payer MEDICAID ==
[2025-02-11 10:11] VITALS: BP 122/75; PULSE 98
[2025-02-11] MEDS: Ketorolac 30 MG/ML SDV IM ONE (10:23)
== END 2025-02-11 10:30 | disposition home or self-care (01) ==
LOC: FB.ED 09:53
DX: S20.211A Contusion of right front wall of thorax, initial encounter (principal); M25.511 Pain in right shoulder; J44.89 Other specified chronic obstructive pulmonary disease; K21.9 Gastro-esophageal reflux disease without esophagitis; F17.200 Nicotine dependence, unspecified, uncomplicated; Z90.49 Acquired absence of other specified parts of digestive tract; Z95.5 Presence of coronary angioplasty implant and graft; Z88.0 Allergy status to penicillin; Z88.5 Allergy status to narcotic agent; Z88.8 Allergy status to other drugs, medicaments and biological substances; Z91.030 Bee allergy status; Z79.51 Long term (current) use of inhaled steroids; Z79.899 Other long term (current) drug therapy; Y04.8XXA Assault by other bodily force, initial encounter
CPT/HCPCS: 96372; 99283; A9270; J1885

== ENCOUNTER 2025-04-01 15:30 | Emergency (ER) | payer MEDICAID, MEDICARE, OTHER ==
[2025-04-01] MEDS: Lactated Ringers 1,000 ML IV ONE (15:59)
[2025-04-01] MEDS: Ondansetron 4 MG/2 ML SDV IVPUSH ONE (15:59)
[2025-04-01] MEDS: Sodium Chloride 0.9% 10 ML Syringe FLUSH PRN (16:01)
[2025-04-01 16:03] LABS: BASOPHILS ABSOLUTE AUTO 0.1 x10-3/uL (0.0-0.1); BASOPHILS PERCENT AUTO 0.8 % (0.2-1.5); EOSINOPHILS ABSOLUTE AUTO 0.0 x10-3/uL (0.0-0.8); EOSINOPHILS PERCENT AUTO 0.4 % (0.6-8.1); LYMPHOCYTES ABSOLUTE AUTO 2.3 x10-3/uL (1.0-4.4); LYMPHOCYTES PERCENT AUTO 26.4 % (18.4-52.1); MEAN PLATELET VOLUME 10.3 fL (7.1-12.4); MONOCYTES ABSOLUTE AUTO 0.7 x10-3/uL (0.3-1.0); MONOCYTES PERCENT AUTO 7.6 % (4.4-15.7); NEUTROPHILS ABSOLUTE AUTO 5.7 x10-3/uL (1.5-6.3); NEUTROPHILS PERCENT AUTO 64.8 % (30.8-76.2); PLATELET COUNT,PLT 274 x10(3)uL (151-488); RED BLOOD CELL COUNT 4.47 x10(6)uL (3.60-5.20); RED CELL DISTRIBUTION WIDTH 14.3 % (12.3-16.5); WHITE BLOOD CELL COUNT,WBC 8.8 x10-3/uL (3.0-10.3)
[2025-04-01] MEDS: Alum Hydroxide/Mag Hydroxide 15 ML, Lidocaine 2% 15 ML PO ONE (16:04)
[2025-04-01 16:06] LABS: BLOOD UREA NITROGEN,BUN 5 mg/dL (7-18); CARBON DIOXIDE,CO2 29 mmol/L (21-32); CHLORIDE,CL 99 mmol/L (100-110); CREATININE 0.5 mg/dL (0.55-1.02); EST CRCL DRUG DOSING (CG) 115.61 mL/min; ESTIMATED GFR 111 mL/min (>60); GLUCOSE RANDOM 104 mg/dL (80-116); POTASSIUM,K 3.5 mmol/L (3.5-5.3); SODIUM,NA 141 mmol/L (135-145)
[2025-04-01 16:12] LABS: A/G RATIO 1.1; ALANINE AMINOTRANSFERASE,ALT 24 U/L (12-36); ASPARTATE AMNIOTRANSFERASE,AST 23 IU/L (5-25); BILIRUBIN TOTAL 0.5 mg/dL (0.1-1.3); PROTEIN TOTAL,TP 7.8 g/dL (6.0-8.0)
[2025-04-01] MEDS: Ketorolac 30 MG/ML SDV IVPUSH ONE (16:28)
[2025-04-01 17:17] VITALS: BP 135/84; PULSE 89
== END 2025-04-01 17:15 | disposition home or self-care (01) ==
LOC: FB.ED 15:30
DX: K52.9 Noninfective gastroenteritis and colitis, unspecified (principal); F10.10 Alcohol abuse, uncomplicated; J44.9 Chronic obstructive pulmonary disease, unspecified; K21.9 Gastro-esophageal reflux disease without esophagitis; Z95.1 Presence of aortocoronary bypass graft; F17.200 Nicotine dependence, unspecified, uncomplicated; Z88.0 Allergy status to penicillin; Z88.8 Allergy status to other drugs, medicaments and biological substances; Z91.030 Bee allergy status; Y90.9 Presence of alcohol in blood, level not specified
CPT/HCPCS: 36415; 80053; 83690; 85025; 96361; 96374; 96375; 99284; 99284-25; A9270-GY; J1885; J2405; J7120

== ENCOUNTER 2025-05-08 21:54 | Emergency (ER) | payer MEDICAID ==
[2025-05-08 23:09] VITALS: BP 125/66; PULSE 66
== END 2025-05-08 22:51 | disposition home or self-care (01) ==
LOC: FB.ED 21:54
DX: S81.852A Open bite, left lower leg, initial encounter (principal); J44.9 Chronic obstructive pulmonary disease, unspecified; K21.9 Gastro-esophageal reflux disease without esophagitis; Z79.899 Other long term (current) drug therapy; Z88.1 Allergy status to other antibiotic agents; Z88.0 Allergy status to penicillin; Z88.8 Allergy status to other drugs, medicaments and biological substances; Z91.030 Bee allergy status; Z95.5 Presence of coronary angioplasty implant and graft; W54.0XXA Bitten by dog, initial encounter
CPT/HCPCS: 99283; A9270-GY